=== PATIENT | male | born 1955 | race Caucasian/White ===

== ENCOUNTER 2021-11-29 12:58 | Inpatient (IN) | payer OTHER ==
[2021-11-29] MEDS ORDERED: LOPERAMIDE HCL 2 MG CAPSULE PO PRN (13:37)
[2021-11-29] MEDS ORDERED: MENTHOL/PHENOL 1 EACH UD MM PRN (13:37)
[2021-11-29] MEDS ORDERED: NICOTINE 10 MG CARTRIDGE (INHALER) IH PRN (13:37)
[2021-11-29] MEDS ORDERED: MAGNESIUM HYDROX 2400MG/30ML ORAL SUSPENSION 30 ML CUP PO PRN (13:37)
[2021-11-29] MEDS ORDERED: IBUPROFEN 400 MG TABLET (FP) PO PRN (13:37)
[2021-11-29] MEDS ORDERED: BISMUTH SUBSALICYLATE 524 MG/30 ML PO PRN (13:37)
[2021-11-29] MEDS ORDERED: MAG HYDROX/AL HYDROX/SIMETH 30 ML UNIT-DOSE CUP PO PRN (13:37)
[2021-11-29] MEDS ORDERED: ONDANSETRON *ODT* 4 MG TABLET SL PRN (13:37)
[2021-11-29] MEDS ORDERED: ACETAMINOPHEN 325 MG TABLET (FP) PO PRN ×2 (13:37)
[2021-11-29] MEDS ORDERED: MAGNESIUM CITRATE 300 ML BOTTLE PO PRN (13:37)
[2021-11-29 14:34] VITALS: BMI 28.0
[2021-11-29] MEDS: hydrOXYzine PAMOATE 25 MG CAPSULE (FP) PO SCH ×3 (18:29→23:00)
[2021-11-29] MEDS: diazePAM 5 MG TABLET PO SCH ×2 (18:29→23:01)
[2021-11-29] MEDS: NICOTINE 21 MG/24 HOURS TOPICAL PATCH TD SCH (18:30)
[2021-11-29] MEDS: PRENATAL VITAMINS W/ FOLIC ACID TABLET (FP) PO SCH (18:30)
[2021-11-29] MEDS: THIAMINE HCL 100 MG TABLET (FP) PO SCH (23:00)
[2021-11-29] MEDS: ATORVASTATIN CA 40 MG TABLET (FP) PO SCH (23:00)
[2021-11-29] MEDS: MELATONIN 5 MG TABLETS PO SCH (23:00)
[2021-11-30] MEDS: hydrOXYzine PAMOATE 25 MG CAPSULE (FP) PO SCH ×5 (05:39→22:40)
[2021-11-30] MEDS: diazePAM 5 MG TABLET PO SCH ×4 (05:39→22:40)
[2021-11-30] MEDS ORDERED: methaDONE HCL 10 MG TABLET PO SCH (09:30)
[2021-11-30] MEDS: EMTRICITAB/RILPIVIRI/TENOF ALA (ODEFSEY) TABLET PO SCH (10:30)
[2021-11-30] MEDS: PRENATAL VITAMINS W/ FOLIC ACID TABLET (FP) PO SCH (10:30)
[2021-11-30] MEDS: NICOTINE 21 MG/24 HOURS TOPICAL PATCH TD SCH (10:31)
[2021-11-30] MEDS ORDERED: methaDONE HCL 40 MG DISPERSABLE TABLET ONE (10:31)
[2021-11-30 10:44] LABS: HEMATOCRIT 38.8 % (35.4-49); HEMOGLOBIN 12.8 GM/dL (11.7-16.9); MCH 31.8 pg (25.7-33.7); MEAN CELL VOLUME 96.4 fl (80-96); MEAN PLT VOLUME 10.2 fl (7.5-11.1); PLATELET COUNT 110 10^3/uL (134-434); RBC 4.03 M/mm3 (4.00-5.60); RDW 15.1 % (11.9-15.9); WHITE BLOOD COUNT 4.2 K/mm3 (4.0-10.0)
[2021-11-30 10:49] LABS: CALCIUM 8.5 mg/dL (8.5-10.1)
[2021-11-30 10:50] LABS: ALBUMIN 3.2 g/dl (3.4-5.0); BLOOD UREA NITROGEN 30.4 mg/dL (7-18)
[2021-11-30 10:53] LABS: CREATININE 1.4 mg/dL (0.55-1.3)
[2021-11-30 10:55] LABS: BILIRUBIN,TOTAL 0.3 mg/dL (0.2-1); TOT PROT 7.2 g/dl (6.4-8.2)
[2021-11-30] MEDS: ATORVASTATIN CA 40 MG TABLET (FP) PO SCH (22:40)
[2021-11-30] MEDS: THIAMINE HCL 100 MG TABLET (FP) PO SCH (22:40)
[2021-11-30] MEDS: MELATONIN 5 MG TABLETS PO SCH (22:43)
[2021-12-01] MEDS ORDERED: methaDONE HCL 40 MG DISPERSABLE TABLET ONE (04:22)
[2021-12-01] MEDS: hydrOXYzine PAMOATE 25 MG CAPSULE (FP) PO SCH ×5 (05:40→22:51)
[2021-12-01] MEDS: diazePAM 5 MG TABLET PO SCH ×3 (05:40→22:51)
[2021-12-01] MEDS: EMTRICITAB/RILPIVIRI/TENOF ALA (ODEFSEY) TABLET PO SCH (07:28)
[2021-12-01 10:06] LABS: CALCIUM 8.8 mg/dL (8.5-10.1)
[2021-12-01 10:07] LABS: BLOOD UREA NITROGEN 24.2 mg/dL (7-18)
[2021-12-01 10:10] LABS: CREATININE 1.3 mg/dL (0.55-1.3)
[2021-12-01] MEDS: METHOCARBAMOL 500 MG TABLET PO PRN (10:39)
[2021-12-01] MEDS: PRENATAL VITAMINS W/ FOLIC ACID TABLET (FP) PO SCH (10:39)
[2021-12-01] MEDS: NICOTINE 21 MG/24 HOURS TOPICAL PATCH TD SCH (10:39)
[2021-12-01] MEDS: diazePAM 5 MG TABLET PO PRN (10:39)
[2021-12-01] MEDS: ATORVASTATIN CA 40 MG TABLET (FP) PO SCH (22:50)
[2021-12-01] MEDS: MELATONIN 5 MG TABLETS PO SCH (22:51)
[2021-12-01] MEDS: THIAMINE HCL 100 MG TABLET (FP) PO SCH (22:51)
[2021-12-02 00:07] LABS: SARS-CoV-2 NAA Not Detected (Not Detected)
[2021-12-02] MEDS ORDERED: methaDONE HCL 40 MG DISPERSABLE TABLET ONE (04:26)
[2021-12-02] MEDS: hydrOXYzine PAMOATE 25 MG CAPSULE (FP) PO SCH ×5 (05:34→22:44)
[2021-12-02] MEDS: diazePAM 5 MG TABLET PO SCH ×2 (05:34→18:26)
[2021-12-02] MEDS: EMTRICITAB/RILPIVIRI/TENOF ALA (ODEFSEY) TABLET PO SCH (07:49)
[2021-12-02] MEDS: diazePAM 5 MG TABLET PO PRN (10:36)
[2021-12-02] MEDS: METHOCARBAMOL 500 MG TABLET PO PRN (10:36)
[2021-12-02] MEDS: PRENATAL VITAMINS W/ FOLIC ACID TABLET (FP) PO SCH (10:36)
[2021-12-02] MEDS: NICOTINE 21 MG/24 HOURS TOPICAL PATCH TD SCH (10:36)
[2021-12-02] MEDS: THIAMINE HCL 100 MG TABLET (FP) PO SCH (22:44)
[2021-12-02] MEDS: ATORVASTATIN CA 40 MG TABLET (FP) PO SCH (22:44)
[2021-12-02] MEDS: MELATONIN 5 MG TABLETS PO SCH (22:44)
[2021-12-03] MEDS ORDERED: methaDONE HCL 40 MG DISPERSABLE TABLET ONE (04:11)
[2021-12-03] MEDS: hydrOXYzine PAMOATE 25 MG CAPSULE (FP) PO SCH ×3 (05:37→14:48)
[2021-12-03] MEDS ORDERED: diazePAM 5 MG TABLET PO ONE (06:00)
[2021-12-03] MEDS: EMTRICITAB/RILPIVIRI/TENOF ALA (ODEFSEY) TABLET PO SCH (07:11)
[2021-12-03] MEDS: NICOTINE 21 MG/24 HOURS TOPICAL PATCH TD SCH (10:16)
[2021-12-03] MEDS: PRENATAL VITAMINS W/ FOLIC ACID TABLET (FP) PO SCH (10:18)
[2021-12-03 13:11] VITALS: BP 93/50; PULSE 85; TEMP 97.3
== END 2021-12-03 14:35 | disposition other institution (70) | DRG 897 ==
LOC: YASAS 12:58 → Y6N 15:12
PROVIDERS: ADMIT Allergy & Immunology; ATTEND Allergy & Immunology
PROC: HZ2ZZZZ Detoxification Services for Substance Abuse Treatment (ICD-10-PCS; principal; 2021-11-29)
DX: F13.230 Sedative, hypnotic or anxiolytic dependence with withdrawal, uncomplicated (principal); F11.20 Opioid dependence, uncomplicated; F10.20 Alcohol dependence, uncomplicated; F17.210 Nicotine dependence, cigarettes, uncomplicated; F41.9 Anxiety disorder, unspecified; Z21 Asymptomatic human immunodeficiency virus [HIV] infection status; D69.6 Thrombocytopenia, unspecified; J44.9 Chronic obstructive pulmonary disease, unspecified; E78.5 Hyperlipidemia, unspecified; R79.89 Other specified abnormal findings of blood chemistry; Z99.89 Dependence on other enabling machines and devices
CPT/HCPCS: 36415; 80048; 80053; 85027; 86780; 93005; 93010; C9803-CS; U0003; U0005

== ENCOUNTER 2021-12-03 13:59 | Inpatient (IN) | payer OTHER ==
[2021-12-03] MEDS ORDERED: IBUPROFEN 400 MG TABLET (FP) PO PRN (16:03)
[2021-12-03] MEDS ORDERED: MAGNESIUM CITRATE 300 ML BOTTLE PO PRN (16:03)
[2021-12-03] MEDS ORDERED: LOPERAMIDE HCL 2 MG CAPSULE PO PRN (16:03)
[2021-12-03] MEDS ORDERED: NICOTINE 10 MG CARTRIDGE (INHALER) IH PRN (16:03)
[2021-12-03] MEDS ORDERED: MAGNESIUM HYDROX 2400MG/30ML ORAL SUSPENSION 30 ML CUP PO PRN (16:03)
[2021-12-03] MEDS ORDERED: guaiFENesin 200 MG/10 ML 10 ML UNIT-DOSE CUPS PO PRN (16:03)
[2021-12-03] MEDS ORDERED: MAG HYDROX/AL HYDROX/SIMETH 30 ML UNIT-DOSE CUP PO PRN (16:03)
[2021-12-03] MEDS ORDERED: P-EPHED 60MG/TRIPROLIDI 2.5MG TABLET PO PRN (16:03)
[2021-12-03] MEDS ORDERED: ACETAMINOPHEN 325 MG TABLET (FP) PO PRN (16:03)
[2021-12-03] MEDS: NICOTINE 7 MG/24 HOURS TOPICAL PATCH TD SCH (17:41)
[2021-12-03] MEDS: hydrOXYzine PAMOATE 25 MG CAPSULE (FP) PO SCH ×2 (17:41→21:32)
[2021-12-03] MEDS: MELATONIN 5 MG TABLETS PO SCH (21:32)
[2021-12-03] MEDS: THIAMINE HCL 100 MG TABLET (FP) PO SCH (21:32)
[2021-12-03] MEDS: ATORVASTATIN CA 40 MG TABLET (FP) PO SCH (21:33)
[2021-12-04] MEDS: hydrOXYzine PAMOATE 25 MG CAPSULE (FP) PO SCH ×5 (06:14→21:36)
[2021-12-04] MEDS ORDERED: methaDONE HCL 40 MG DISPERSABLE TABLET ONE (08:40)
[2021-12-04] MEDS: PRENATAL VITAMINS W/ FOLIC ACID TABLET (FP) PO SCH (09:49)
[2021-12-04] MEDS: NICOTINE 7 MG/24 HOURS TOPICAL PATCH TD SCH (09:51)
[2021-12-04] MEDS: EMTRICITAB/RILPIVIRI/TENOF ALA (ODEFSEY) TABLET PO SCH (09:51)
[2021-12-04] MEDS ORDERED: methaDONE HCL 40 MG DISPERSABLE TABLET PO SCH (10:00)
[2021-12-04] MEDS: ATORVASTATIN CA 40 MG TABLET (FP) PO SCH (21:35)
[2021-12-04] MEDS: THIAMINE HCL 100 MG TABLET (FP) PO SCH (21:35)
[2021-12-04] MEDS: MELATONIN 5 MG TABLETS PO SCH (21:35)
[2021-12-05] MEDS: hydrOXYzine PAMOATE 25 MG CAPSULE (FP) PO SCH (06:05)
[2021-12-05] MEDS ORDERED: methaDONE HCL 40 MG DISPERSABLE TABLET ONE (09:48)
[2021-12-05] MEDS ORDERED: hydrOXYzine PAMOATE 25 MG CAPSULE (FP) PO PRN (09:49)
[2021-12-05] MEDS: PRENATAL VITAMINS W/ FOLIC ACID TABLET (FP) PO SCH (09:57)
[2021-12-05] MEDS: NICOTINE 7 MG/24 HOURS TOPICAL PATCH TD SCH (09:57)
[2021-12-05] MEDS: EMTRICITAB/RILPIVIRI/TENOF ALA (ODEFSEY) TABLET PO SCH (09:57)
[2021-12-05] MEDS: ATORVASTATIN CA 40 MG TABLET (FP) PO SCH (21:27)
[2021-12-05] MEDS: THIAMINE HCL 100 MG TABLET (FP) PO SCH (21:27)
[2021-12-05] MEDS: MELATONIN 5 MG TABLETS PO SCH (21:27)
[2021-12-06] MEDS ORDERED: methaDONE HCL 40 MG DISPERSABLE TABLET ONE (06:11)
[2021-12-06] MEDS: PRENATAL VITAMINS W/ FOLIC ACID TABLET (FP) PO SCH (09:51)
[2021-12-06] MEDS: NICOTINE 7 MG/24 HOURS TOPICAL PATCH TD SCH (09:52)
[2021-12-06] MEDS: EMTRICITAB/RILPIVIRI/TENOF ALA (ODEFSEY) TABLET PO SCH (11:41)
[2021-12-06 16:09] LABS: SARS-CoV-2 NAA Not Detected (Not Detected)
[2021-12-06] MEDS: THIAMINE HCL 100 MG TABLET (FP) PO SCH (21:59)
[2021-12-06] MEDS: MELATONIN 5 MG TABLETS PO SCH (21:59)
[2021-12-06] MEDS: ATORVASTATIN CA 40 MG TABLET (FP) PO SCH (21:59)
[2021-12-07] MEDS ORDERED: methaDONE HCL 40 MG DISPERSABLE TABLET ONE (03:12)
[2021-12-07] MEDS: NICOTINE 7 MG/24 HOURS TOPICAL PATCH TD SCH (09:58)
[2021-12-07] MEDS: EMTRICITAB/RILPIVIRI/TENOF ALA (ODEFSEY) TABLET PO SCH (09:58)
[2021-12-07] MEDS: PRENATAL VITAMINS W/ FOLIC ACID TABLET (FP) PO SCH (09:58)
[2021-12-07] MEDS: MELATONIN 5 MG TABLETS PO SCH (21:07)
[2021-12-07] MEDS: THIAMINE HCL 100 MG TABLET (FP) PO SCH (21:07)
[2021-12-07] MEDS: ATORVASTATIN CA 40 MG TABLET (FP) PO SCH (21:08)
[2021-12-08] MEDS ORDERED: methaDONE HCL 40 MG DISPERSABLE TABLET ONE (03:15)
[2021-12-08] MEDS: EMTRICITAB/RILPIVIRI/TENOF ALA (ODEFSEY) TABLET PO SCH (09:55)
[2021-12-08] MEDS: NICOTINE 7 MG/24 HOURS TOPICAL PATCH TD SCH (09:55)
[2021-12-08] MEDS: PRENATAL VITAMINS W/ FOLIC ACID TABLET (FP) PO SCH (09:55)
[2021-12-08] MEDS: MELATONIN 5 MG TABLETS PO SCH (21:29)
[2021-12-08] MEDS: THIAMINE HCL 100 MG TABLET (FP) PO SCH (21:29)
[2021-12-08] MEDS: ATORVASTATIN CA 40 MG TABLET (FP) PO SCH (21:30)
[2021-12-09] MEDS ORDERED: methaDONE HCL 40 MG DISPERSABLE TABLET ONE (06:32)
[2021-12-09] MEDS: EMTRICITAB/RILPIVIRI/TENOF ALA (ODEFSEY) TABLET PO SCH (09:30)
[2021-12-09] MEDS: NICOTINE 7 MG/24 HOURS TOPICAL PATCH TD SCH (09:30)
[2021-12-09] MEDS: PRENATAL VITAMINS W/ FOLIC ACID TABLET (FP) PO SCH (09:30)
[2021-12-09] MEDS: THIAMINE HCL 100 MG TABLET (FP) PO SCH (21:26)
[2021-12-09] MEDS: MELATONIN 5 MG TABLETS PO SCH (21:26)
[2021-12-09] MEDS: ATORVASTATIN CA 40 MG TABLET (FP) PO SCH (21:26)
[2021-12-10] MEDS ORDERED: methaDONE HCL 40 MG DISPERSABLE TABLET ONE (03:12)
[2021-12-10] MEDS: PRENATAL VITAMINS W/ FOLIC ACID TABLET (FP) PO SCH (09:50)
[2021-12-10] MEDS: NICOTINE 7 MG/24 HOURS TOPICAL PATCH TD SCH (09:50)
[2021-12-10] MEDS: EMTRICITAB/RILPIVIRI/TENOF ALA (ODEFSEY) TABLET PO SCH (09:50)
[2021-12-10] MEDS: ATORVASTATIN CA 40 MG TABLET (FP) PO SCH (21:12)
[2021-12-10] MEDS: THIAMINE HCL 100 MG TABLET (FP) PO SCH (21:12)
[2021-12-10] MEDS: MELATONIN 5 MG TABLETS PO SCH (21:13)
[2021-12-11] MEDS ORDERED: methaDONE HCL 40 MG DISPERSABLE TABLET ONE (03:29)
[2021-12-11] MEDS: PRENATAL VITAMINS W/ FOLIC ACID TABLET (FP) PO SCH (09:54)
[2021-12-11] MEDS: EMTRICITAB/RILPIVIRI/TENOF ALA (ODEFSEY) TABLET PO SCH (09:54)
[2021-12-11] MEDS: NICOTINE 7 MG/24 HOURS TOPICAL PATCH TD SCH (09:54)
[2021-12-11] MEDS: THIAMINE HCL 100 MG TABLET (FP) PO SCH (21:24)
[2021-12-11] MEDS: MELATONIN 5 MG TABLETS PO SCH (21:24)
[2021-12-11] MEDS: ATORVASTATIN CA 40 MG TABLET (FP) PO SCH (21:24)
[2021-12-12] MEDS ORDERED: methaDONE HCL 40 MG DISPERSABLE TABLET ONE (03:24)
[2021-12-12] MEDS: NICOTINE 7 MG/24 HOURS TOPICAL PATCH TD SCH (09:47)
[2021-12-12] MEDS: EMTRICITAB/RILPIVIRI/TENOF ALA (ODEFSEY) TABLET PO SCH (09:47)
[2021-12-12] MEDS: PRENATAL VITAMINS W/ FOLIC ACID TABLET (FP) PO SCH (09:47)
[2021-12-12] MEDS: THIAMINE HCL 100 MG TABLET (FP) PO SCH (21:25)
[2021-12-12] MEDS: MELATONIN 5 MG TABLETS PO SCH (21:25)
[2021-12-12] MEDS: ATORVASTATIN CA 40 MG TABLET (FP) PO SCH (21:25)
[2021-12-13] MEDS ORDERED: methaDONE HCL 40 MG DISPERSABLE TABLET ONE (06:21)
[2021-12-13] MEDS: NICOTINE 7 MG/24 HOURS TOPICAL PATCH TD SCH (09:55)
[2021-12-13] MEDS: EMTRICITAB/RILPIVIRI/TENOF ALA (ODEFSEY) TABLET PO SCH (09:56)
[2021-12-13] MEDS: PRENATAL VITAMINS W/ FOLIC ACID TABLET (FP) PO SCH (09:57)
[2021-12-13] MEDS: THIAMINE HCL 100 MG TABLET (FP) PO SCH (21:17)
[2021-12-13] MEDS: MELATONIN 5 MG TABLETS PO SCH (21:17)
[2021-12-13] MEDS: ATORVASTATIN CA 40 MG TABLET (FP) PO SCH (21:17)
[2021-12-14] MEDS ORDERED: methaDONE HCL 40 MG DISPERSABLE TABLET ONE (03:13)
[2021-12-14] MEDS: EMTRICITAB/RILPIVIRI/TENOF ALA (ODEFSEY) TABLET PO SCH (10:10)
[2021-12-14] MEDS: NICOTINE 7 MG/24 HOURS TOPICAL PATCH TD SCH (10:10)
[2021-12-14] MEDS: PRENATAL VITAMINS W/ FOLIC ACID TABLET (FP) PO SCH (10:10)
[2021-12-14] MEDS: THIAMINE HCL 100 MG TABLET (FP) PO SCH (21:39)
[2021-12-14] MEDS: MELATONIN 5 MG TABLETS PO SCH (21:39)
[2021-12-14] MEDS: ATORVASTATIN CA 40 MG TABLET (FP) PO SCH (21:39)
[2021-12-15] MEDS ORDERED: methaDONE HCL 40 MG DISPERSABLE TABLET ONE (05:23)
[2021-12-15] MEDS: PRENATAL VITAMINS W/ FOLIC ACID TABLET (FP) PO SCH (09:17)
[2021-12-15] MEDS: EMTRICITAB/RILPIVIRI/TENOF ALA (ODEFSEY) TABLET PO SCH (09:17)
[2021-12-15] MEDS: NICOTINE 7 MG/24 HOURS TOPICAL PATCH TD SCH (09:17)
[2021-12-15] MEDS: ATORVASTATIN CA 40 MG TABLET (FP) PO SCH (21:23)
[2021-12-15] MEDS: MELATONIN 5 MG TABLETS PO SCH (21:23)
[2021-12-15] MEDS: THIAMINE HCL 100 MG TABLET (FP) PO SCH (21:23)
[2021-12-16] MEDS ORDERED: methaDONE HCL 40 MG DISPERSABLE TABLET ONE (04:29)
[2021-12-16 06:36] VITALS: BP 146/73; PULSE 50; TEMP 98.9
== END 2021-12-16 09:20 | disposition home or self-care (01) | DRG 895 ==
LOC: YASAS 13:59 → Y3E 14:00
PROVIDERS: ADMIT Allergy & Immunology; ATTEND Allergy & Immunology
PROC: HZ42ZZZ Group Counseling for Substance Abuse Treatment, Cognitive-Behavioral (ICD-10-PCS; principal; 2021-12-03)
DX: F10.20 Alcohol dependence, uncomplicated (principal); F11.20 Opioid dependence, uncomplicated; F17.210 Nicotine dependence, cigarettes, uncomplicated; Z21 Asymptomatic human immunodeficiency virus [HIV] infection status; J44.9 Chronic obstructive pulmonary disease, unspecified; E78.5 Hyperlipidemia, unspecified; R79.89 Other specified abnormal findings of blood chemistry; Z98.890 Other specified postprocedural states
CPT/HCPCS: 36415; 86803; 87522; C9803-CS; U0003; U0005

== ENCOUNTER 2022-02-28 11:47 | Inpatient (IN) | payer OTHER ==
[2022-02-28 12:48] VITALS: BMI 28.8
[2022-02-28] MEDS ORDERED: MAG HYDROX/AL HYDROX/SIMETH 30 ML UNIT-DOSE CUP PO PRN (13:09)
[2022-02-28] MEDS ORDERED: ACETAMINOPHEN 325 MG TABLET (FP) PO PRN ×2 (13:09)
[2022-02-28] MEDS ORDERED: BENZOCAINE/MENTHOL (CHLORASEPTIC ) LOZENGE MM PRN (13:09)
[2022-02-28] MEDS ORDERED: DICYCLOMINE HCL 10 MG CAPSULE PO PRN (13:09)
[2022-02-28] MEDS ORDERED: ONDANSETRON *ODT* 4 MG TABLET SL PRN (13:09)
[2022-02-28] MEDS ORDERED: diazePAM 5 MG TABLET PO PRN (13:09)
[2022-02-28] MEDS ORDERED: NICOTINE 10 MG CARTRIDGE (INHALER) IH PRN (13:09)
[2022-02-28] MEDS ORDERED: LOPERAMIDE HCL 2 MG CAPSULE PO PRN (13:09)
[2022-02-28] MEDS ORDERED: MAGNESIUM CITRATE 300 ML BOTTLE PO PRN (13:09)
[2022-02-28] MEDS ORDERED: IBUPROFEN 400 MG TABLET (FP) PO PRN (13:09)
[2022-02-28] MEDS ORDERED: IBUPROFEN 600 MG TABLET (FP) PO PRN (13:09)
[2022-02-28] MEDS ORDERED: BISMUTH SUBSALICYLATE 524 MG/30 ML PO PRN (13:09)
[2022-02-28] MEDS ORDERED: MAGNESIUM HYDROX 2400MG/30ML ORAL SUSPENSION 30 ML CUP PO PRN (13:09)
[2022-02-28] MEDS: NICOTINE 14 MG/24 HOURS TOPICAL PATCH TD SCH (15:30)
[2022-02-28] MEDS: hydrOXYzine PAMOATE 25 MG CAPSULE (FP) PO SCH ×3 (15:32→22:52)
[2022-02-28] MEDS: METHOCARBAMOL 500 MG TABLET PO PRN (15:32)
[2022-02-28] MEDS: PRENATAL VITAMINS W/ FOLIC ACID TABLET (FP) PO SCH (15:33)
[2022-02-28 17:36] LABS: HEMATOCRIT 40.4 % (35.4-49); HEMOGLOBIN 13.8 GM/dL (11.7-16.9); MCH 32.5 pg (25.7-33.7); MCHC 34.1 g/dl (32.0-35.9); MEAN CELL VOLUME 95.3 fl (80-96); MEAN PLT VOLUME 10.4 fl (7.5-11.1); PLATELET COUNT 136 10^3/uL (134-434); RBC 4.24 M/mm3 (4.00-5.60); RDW 14.7 % (11.9-15.9); WHITE BLOOD COUNT 5.7 K/mm3 (4.0-10.0)
[2022-02-28] MEDS: diazePAM 5 MG TABLET PO SCH ×2 (17:41→22:34)
[2022-02-28 17:44] LABS: ALBUMIN 3.7 g/dl (3.4-5.0); BLOOD UREA NITROGEN 35.6 mg/dL (7-18); CALCIUM 9.2 mg/dL (8.5-10.1)
[2022-02-28 17:47] LABS: CREATININE 1.7 mg/dL (0.55-1.3)
[2022-02-28 17:49] LABS: BILIRUBIN,TOTAL 0.8 mg/dL (0.2-1); TOT PROT 8.3 g/dl (6.4-8.2)
[2022-02-28] MEDS: THIAMINE HCL 100 MG TABLET (FP) PO SCH (22:34)
[2022-02-28] MEDS: ATORVASTATIN CA 40 MG TABLET (FP) PO SCH (22:34)
[2022-02-28] MEDS: MELATONIN 5 MG TABLETS PO SCH (22:35)
[2022-03-01] MEDS ORDERED: methaDONE HCL 40 MG DISPERSABLE TABLET ONE (04:18)
[2022-03-01] MEDS: hydrOXYzine PAMOATE 25 MG CAPSULE (FP) PO SCH ×5 (05:15→22:26)
[2022-03-01] MEDS: diazePAM 5 MG TABLET PO SCH ×4 (05:16→22:23)
[2022-03-01] MEDS: EMTRICITAB/RILPIVIRI/TENOF ALA (ODEFSEY) TABLET PO SCH (07:06)
[2022-03-01] MEDS ORDERED: methaDONE HCL 40 MG DISPERSABLE TABLET PO SCH (10:00)
[2022-03-01] MEDS: PRENATAL VITAMINS W/ FOLIC ACID TABLET (FP) PO SCH (10:11)
[2022-03-01] MEDS: METHOCARBAMOL 500 MG TABLET PO PRN (10:11)
[2022-03-01] MEDS: NICOTINE 14 MG/24 HOURS TOPICAL PATCH TD SCH (10:12)
[2022-03-01] MEDS: THIAMINE HCL 100 MG TABLET (FP) PO SCH (22:23)
[2022-03-01] MEDS: ATORVASTATIN CA 40 MG TABLET (FP) PO SCH (22:23)
[2022-03-01] MEDS: MELATONIN 5 MG TABLETS PO SCH (22:24)
[2022-03-02] MEDS ORDERED: methaDONE HCL 40 MG DISPERSABLE TABLET ONE (04:42)
[2022-03-02] MEDS: hydrOXYzine PAMOATE 25 MG CAPSULE (FP) PO SCH ×5 (05:20→22:21)
[2022-03-02] MEDS: diazePAM 5 MG TABLET PO SCH ×3 (05:20→22:20)
[2022-03-02] MEDS: EMTRICITAB/RILPIVIRI/TENOF ALA (ODEFSEY) TABLET PO SCH (07:50)
[2022-03-02] MEDS: PRENATAL VITAMINS W/ FOLIC ACID TABLET (FP) PO SCH (10:28)
[2022-03-02] MEDS: NICOTINE 14 MG/24 HOURS TOPICAL PATCH TD SCH (10:29)
[2022-03-02 12:30] LABS: CALCIUM 8.3 mg/dL (8.5-10.1)
[2022-03-02 12:31] LABS: BLOOD UREA NITROGEN 31.1 mg/dL (7-18)
[2022-03-02 12:34] LABS: CREATININE 1.2 mg/dL (0.55-1.3)
[2022-03-02] MEDS: ATORVASTATIN CA 40 MG TABLET (FP) PO SCH (22:20)
[2022-03-02] MEDS: THIAMINE HCL 100 MG TABLET (FP) PO SCH (22:20)
[2022-03-02] MEDS: MELATONIN 5 MG TABLETS PO SCH (22:21)
[2022-03-03] MEDS ORDERED: methaDONE HCL 40 MG DISPERSABLE TABLET ONE (04:11)
[2022-03-03] MEDS: diazePAM 5 MG TABLET PO SCH ×2 (05:36→17:28)
[2022-03-03] MEDS: hydrOXYzine PAMOATE 25 MG CAPSULE (FP) PO SCH ×5 (05:41→22:25)
[2022-03-03] MEDS: EMTRICITAB/RILPIVIRI/TENOF ALA (ODEFSEY) TABLET PO SCH (07:28)
[2022-03-03] MEDS: PRENATAL VITAMINS W/ FOLIC ACID TABLET (FP) PO SCH (10:23)
[2022-03-03] MEDS: NICOTINE 14 MG/24 HOURS TOPICAL PATCH TD SCH (10:23)
[2022-03-03] MEDS: MELATONIN 5 MG TABLETS PO SCH (22:25)
[2022-03-03] MEDS: ATORVASTATIN CA 40 MG TABLET (FP) PO SCH (22:25)
[2022-03-03] MEDS: THIAMINE HCL 100 MG TABLET (FP) PO SCH (22:25)
[2022-03-04] MEDS ORDERED: methaDONE HCL 40 MG DISPERSABLE TABLET ONE (04:07)
[2022-03-04] MEDS: hydrOXYzine PAMOATE 25 MG CAPSULE (FP) PO SCH ×2 (05:13→10:11)
[2022-03-04] MEDS ORDERED: diazePAM 5 MG TABLET PO ONE (06:00)
[2022-03-04] MEDS: EMTRICITAB/RILPIVIRI/TENOF ALA (ODEFSEY) TABLET PO SCH (08:06)
[2022-03-04] MEDS: PRENATAL VITAMINS W/ FOLIC ACID TABLET (FP) PO SCH (10:11)
[2022-03-04] MEDS: NICOTINE 14 MG/24 HOURS TOPICAL PATCH TD SCH (10:12)
[2022-03-04 12:44] VITALS: BP 98/66; PULSE 68; TEMP 97.7
== END 2022-03-04 13:05 | disposition other institution (70) | DRG 897 ==
LOC: YASAS 11:47 → Y6N 13:14
PROVIDERS: ADMIT Allergy & Immunology; ATTEND Surgery
PROC: HZ2ZZZZ Detoxification Services for Substance Abuse Treatment (ICD-10-PCS; principal; 2022-02-28)
DX: F13.232 Sedative, hypnotic or anxiolytic dependence with withdrawal with perceptual disturbance (principal); F11.20 Opioid dependence, uncomplicated; F17.210 Nicotine dependence, cigarettes, uncomplicated; E78.5 Hyperlipidemia, unspecified; Z21 Asymptomatic human immunodeficiency virus [HIV] infection status; J44.9 Chronic obstructive pulmonary disease, unspecified; R79.89 Other specified abnormal findings of blood chemistry
CPT/HCPCS: 36415; 80048; 80053; 85027; 86780; C9803-CS; U0003; U0005

== ENCOUNTER 2022-03-04 13:37 | Inpatient (IN) | payer OTHER ==
[2022-03-04] MEDS ORDERED: MAGNESIUM HYDROX 2400MG/30ML ORAL SUSPENSION 30 ML CUP PO PRN (15:28)
[2022-03-04] MEDS ORDERED: P-EPHED 60MG/TRIPROLIDI 2.5MG TABLET PO PRN (15:28)
[2022-03-04] MEDS ORDERED: LOPERAMIDE HCL 2 MG CAPSULE PO PRN (15:28)
[2022-03-04] MEDS ORDERED: MAGNESIUM CITRATE 300 ML BOTTLE PO PRN (15:28)
[2022-03-04] MEDS ORDERED: MAG HYDROX/AL HYDROX/SIMETH 30 ML UNIT-DOSE CUP PO PRN (15:28)
[2022-03-04] MEDS ORDERED: NICOTINE 10 MG CARTRIDGE (INHALER) IH PRN (15:28)
[2022-03-04] MEDS ORDERED: guaiFENesin 200 MG/10 ML 10 ML UNIT-DOSE CUPS PO PRN (15:28)
[2022-03-04] MEDS: hydrOXYzine PAMOATE 25 MG CAPSULE (FP) PO SCH ×2 (18:50→22:34)
[2022-03-04] MEDS: THIAMINE HCL 100 MG TABLET (FP) PO SCH (22:34)
[2022-03-04] MEDS: ATORVASTATIN CA 40 MG TABLET (FP) PO SCH (22:34)
[2022-03-04] MEDS: MELATONIN 5 MG TABLETS PO SCH (22:34)
[2022-03-05] MEDS: hydrOXYzine PAMOATE 25 MG CAPSULE (FP) PO SCH ×5 (06:35→21:26)
[2022-03-05] MEDS ORDERED: methaDONE HCL 40 MG DISPERSABLE TABLET ONE (08:49)
[2022-03-05] MEDS ORDERED: methaDONE HCL 40 MG DISPERSABLE TABLET PO SCH (10:00)
[2022-03-05] MEDS: PRENATAL VITAMINS W/ FOLIC ACID TABLET (FP) PO SCH (10:14)
[2022-03-05] MEDS: NICOTINE 7 MG/24 HOURS TOPICAL PATCH TD SCH (10:18)
[2022-03-05] MEDS: EMTRICITAB/RILPIVIRI/TENOF ALA (ODEFSEY) TABLET PO SCH (10:18)
[2022-03-05 10:38] LABS: PH,URINE 7.5 (5.0-8.0); URINE APPEARANCE CLEAR; URINE BILIRUBIN NEGATIVE (NEGATIVE); URINE COLOR YELLOW; URINE GLUCOSE (UA) NEGATIVE (NEGATIVE); URINE KETONE NEGATIVE (NEGATIVE); URINE LEUK ESTERASE NEGATIVE (NEGATIVE); URINE NITRITE NEGATIVE (NEGATIVE); URINE PROTEIN NEGATIVE (NEGATIVE)
[2022-03-05] MEDS: ATORVASTATIN CA 40 MG TABLET (FP) PO SCH (21:26)
[2022-03-05] MEDS: MELATONIN 5 MG TABLETS PO SCH (21:26)
[2022-03-05] MEDS: THIAMINE HCL 100 MG TABLET (FP) PO SCH (21:26)
[2022-03-06] MEDS: hydrOXYzine PAMOATE 25 MG CAPSULE (FP) PO SCH ×2 (06:26→09:55)
[2022-03-06] MEDS ORDERED: methaDONE HCL 40 MG DISPERSABLE TABLET ONE (08:57)
[2022-03-06] MEDS: PRENATAL VITAMINS W/ FOLIC ACID TABLET (FP) PO SCH (09:54)
[2022-03-06] MEDS: NICOTINE 7 MG/24 HOURS TOPICAL PATCH TD SCH (09:55)
[2022-03-06] MEDS: EMTRICITAB/RILPIVIRI/TENOF ALA (ODEFSEY) TABLET PO SCH (09:55)
[2022-03-06] MEDS: ATORVASTATIN CA 40 MG TABLET (FP) PO SCH (21:22)
[2022-03-06] MEDS: THIAMINE HCL 100 MG TABLET (FP) PO SCH (21:22)
[2022-03-06] MEDS: IBUPROFEN 400 MG TABLET (FP) PO PRN (21:23)
[2022-03-06] MEDS: MELATONIN 5 MG TABLETS PO SCH (21:23)
[2022-03-07] MEDS ORDERED: methaDONE HCL 40 MG DISPERSABLE TABLET ONE (04:03)
[2022-03-07] MEDS: NICOTINE 7 MG/24 HOURS TOPICAL PATCH TD SCH (10:29)
[2022-03-07] MEDS: PRENATAL VITAMINS W/ FOLIC ACID TABLET (FP) PO SCH (10:29)
[2022-03-07] MEDS: EMTRICITAB/RILPIVIRI/TENOF ALA (ODEFSEY) TABLET PO SCH (10:43)
[2022-03-07] MEDS: hydrOXYzine PAMOATE 25 MG CAPSULE (FP) PO PRN (21:10)
[2022-03-07] MEDS: MELATONIN 5 MG TABLETS PO SCH (21:10)
[2022-03-07] MEDS: ATORVASTATIN CA 40 MG TABLET (FP) PO SCH (21:10)
[2022-03-07] MEDS: THIAMINE HCL 100 MG TABLET (FP) PO SCH (21:10)
[2022-03-08] MEDS ORDERED: methaDONE HCL 40 MG DISPERSABLE TABLET ONE (03:50)
[2022-03-08] MEDS: IBUPROFEN 400 MG TABLET (FP) PO PRN ×2 (06:08→21:31)
[2022-03-08] MEDS: EMTRICITAB/RILPIVIRI/TENOF ALA (ODEFSEY) TABLET PO SCH (09:40)
[2022-03-08] MEDS: PRENATAL VITAMINS W/ FOLIC ACID TABLET (FP) PO SCH (09:40)
[2022-03-08] MEDS: NICOTINE 7 MG/24 HOURS TOPICAL PATCH TD SCH (09:40)
[2022-03-08] MEDS: THIAMINE HCL 100 MG TABLET (FP) PO SCH (21:30)
[2022-03-08] MEDS: ATORVASTATIN CA 40 MG TABLET (FP) PO SCH (21:30)
[2022-03-08] MEDS: hydrOXYzine PAMOATE 25 MG CAPSULE (FP) PO PRN (21:30)
[2022-03-08] MEDS: MELATONIN 5 MG TABLETS PO SCH (21:30)
[2022-03-09] MEDS ORDERED: methaDONE HCL 40 MG DISPERSABLE TABLET ONE (03:04)
[2022-03-09] MEDS: PRENATAL VITAMINS W/ FOLIC ACID TABLET (FP) PO SCH (09:57)
[2022-03-09] MEDS: NICOTINE 7 MG/24 HOURS TOPICAL PATCH TD SCH (09:58)
[2022-03-09] MEDS: EMTRICITAB/RILPIVIRI/TENOF ALA (ODEFSEY) TABLET PO SCH (09:58)
[2022-03-09] MEDS: ATORVASTATIN CA 40 MG TABLET (FP) PO SCH (21:23)
[2022-03-09] MEDS: MELATONIN 5 MG TABLETS PO SCH (21:24)
[2022-03-09] MEDS: hydrOXYzine PAMOATE 25 MG CAPSULE (FP) PO PRN (21:24)
[2022-03-09] MEDS: THIAMINE HCL 100 MG TABLET (FP) PO SCH (21:24)
[2022-03-10] MEDS ORDERED: methaDONE HCL 40 MG DISPERSABLE TABLET ONE (03:52)
[2022-03-10] MEDS: ACETAMINOPHEN 325 MG TABLET (FP) PO PRN (06:05)
[2022-03-10] MEDS: PRENATAL VITAMINS W/ FOLIC ACID TABLET (FP) PO SCH (09:51)
[2022-03-10] MEDS: NICOTINE 7 MG/24 HOURS TOPICAL PATCH TD SCH (09:52)
[2022-03-10] MEDS: EMTRICITAB/RILPIVIRI/TENOF ALA (ODEFSEY) TABLET PO SCH (09:52)
[2022-03-10] MEDS: ATORVASTATIN CA 40 MG TABLET (FP) PO SCH (21:18)
[2022-03-10] MEDS: hydrOXYzine PAMOATE 25 MG CAPSULE (FP) PO PRN (21:18)
[2022-03-10] MEDS: MELATONIN 5 MG TABLETS PO SCH (21:18)
[2022-03-10] MEDS: THIAMINE HCL 100 MG TABLET (FP) PO SCH (21:18)
[2022-03-11] MEDS ORDERED: methaDONE HCL 40 MG DISPERSABLE TABLET ONE (03:44)
[2022-03-11] MEDS: IBUPROFEN 400 MG TABLET (FP) PO PRN (06:10)
[2022-03-11] MEDS: PRENATAL VITAMINS W/ FOLIC ACID TABLET (FP) PO SCH (09:36)
[2022-03-11] MEDS: NICOTINE 7 MG/24 HOURS TOPICAL PATCH TD SCH (09:37)
[2022-03-11] MEDS: ACETAMINOPHEN 325 MG TABLET (FP) PO PRN ×2 (09:37→21:28)
[2022-03-11] MEDS: EMTRICITAB/RILPIVIRI/TENOF ALA (ODEFSEY) TABLET PO SCH (09:39)
[2022-03-11] MEDS: THIAMINE HCL 100 MG TABLET (FP) PO SCH (21:27)
[2022-03-11] MEDS: MELATONIN 5 MG TABLETS PO SCH (21:27)
[2022-03-11] MEDS: ATORVASTATIN CA 40 MG TABLET (FP) PO SCH (21:27)
[2022-03-12] MEDS ORDERED: methaDONE HCL 40 MG DISPERSABLE TABLET ONE (03:07)
[2022-03-12] MEDS: EMTRICITAB/RILPIVIRI/TENOF ALA (ODEFSEY) TABLET PO SCH (09:53)
[2022-03-12] MEDS: NICOTINE 7 MG/24 HOURS TOPICAL PATCH TD SCH (09:53)
[2022-03-12] MEDS: PRENATAL VITAMINS W/ FOLIC ACID TABLET (FP) PO SCH (09:53)
[2022-03-12] MEDS: IBUPROFEN 400 MG TABLET (FP) PO PRN (09:54)
[2022-03-12] MEDS: THIAMINE HCL 100 MG TABLET (FP) PO SCH (21:19)
[2022-03-12] MEDS: MELATONIN 5 MG TABLETS PO SCH (21:19)
[2022-03-12] MEDS: hydrOXYzine PAMOATE 25 MG CAPSULE (FP) PO PRN (21:19)
[2022-03-12] MEDS: ATORVASTATIN CA 40 MG TABLET (FP) PO SCH (21:19)
[2022-03-13] MEDS ORDERED: methaDONE HCL 40 MG DISPERSABLE TABLET ONE (03:09)
[2022-03-13] MEDS: NICOTINE 7 MG/24 HOURS TOPICAL PATCH TD SCH (09:55)
[2022-03-13] MEDS: IBUPROFEN 400 MG TABLET (FP) PO PRN (09:55)
[2022-03-13] MEDS: EMTRICITAB/RILPIVIRI/TENOF ALA (ODEFSEY) TABLET PO SCH (09:55)
[2022-03-13] MEDS: PRENATAL VITAMINS W/ FOLIC ACID TABLET (FP) PO SCH (09:55)
[2022-03-13] MEDS: THIAMINE HCL 100 MG TABLET (FP) PO SCH (21:27)
[2022-03-13] MEDS: ATORVASTATIN CA 40 MG TABLET (FP) PO SCH (21:27)
[2022-03-13] MEDS: hydrOXYzine PAMOATE 25 MG CAPSULE (FP) PO PRN (21:27)
[2022-03-13] MEDS: MELATONIN 5 MG TABLETS PO SCH (21:27)
[2022-03-14] MEDS ORDERED: methaDONE HCL 40 MG DISPERSABLE TABLET ONE (06:12)
[2022-03-14] MEDS: PRENATAL VITAMINS W/ FOLIC ACID TABLET (FP) PO SCH (09:47)
[2022-03-14] MEDS: NICOTINE 7 MG/24 HOURS TOPICAL PATCH TD SCH (09:48)
[2022-03-14] MEDS: EMTRICITAB/RILPIVIRI/TENOF ALA (ODEFSEY) TABLET PO SCH (09:48)
[2022-03-14] MEDS: IBUPROFEN 400 MG TABLET (FP) PO PRN (09:48)
[2022-03-14] MEDS: ATORVASTATIN CA 40 MG TABLET (FP) PO SCH (21:19)
[2022-03-14] MEDS: hydrOXYzine PAMOATE 25 MG CAPSULE (FP) PO PRN (21:19)
[2022-03-14] MEDS: THIAMINE HCL 100 MG TABLET (FP) PO SCH (21:19)
[2022-03-14] MEDS: MELATONIN 5 MG TABLETS PO SCH (21:19)
[2022-03-15] MEDS ORDERED: methaDONE HCL 40 MG DISPERSABLE TABLET ONE (04:13)
[2022-03-15] MEDS: EMTRICITAB/RILPIVIRI/TENOF ALA (ODEFSEY) TABLET PO SCH (09:55)
[2022-03-15] MEDS: PRENATAL VITAMINS W/ FOLIC ACID TABLET (FP) PO SCH (09:55)
[2022-03-15] MEDS: NICOTINE 7 MG/24 HOURS TOPICAL PATCH TD SCH (09:56)
[2022-03-15] MEDS: MELATONIN 5 MG TABLETS PO SCH (21:20)
[2022-03-15] MEDS: THIAMINE HCL 100 MG TABLET (FP) PO SCH (21:20)
[2022-03-15] MEDS: ATORVASTATIN CA 40 MG TABLET (FP) PO SCH (21:20)
[2022-03-16] MEDS ORDERED: methaDONE HCL 40 MG DISPERSABLE TABLET ONE (03:08)
[2022-03-16] MEDS: EMTRICITAB/RILPIVIRI/TENOF ALA (ODEFSEY) TABLET PO SCH (09:58)
[2022-03-16] MEDS: NICOTINE 7 MG/24 HOURS TOPICAL PATCH TD SCH (09:58)
[2022-03-16] MEDS: PRENATAL VITAMINS W/ FOLIC ACID TABLET (FP) PO SCH (09:58)
[2022-03-16] MEDS: THIAMINE HCL 100 MG TABLET (FP) PO SCH (21:31)
[2022-03-16] MEDS: ATORVASTATIN CA 40 MG TABLET (FP) PO SCH (21:31)
[2022-03-16] MEDS: MELATONIN 5 MG TABLETS PO SCH (21:31)
[2022-03-17] MEDS ORDERED: methaDONE HCL 40 MG DISPERSABLE TABLET ONE (03:32)
[2022-03-17 06:18] VITALS: BP 135/70; PULSE 75; TEMP 97.5
[2022-03-17] MEDS: NICOTINE 7 MG/24 HOURS TOPICAL PATCH TD SCH (09:18)
[2022-03-17] MEDS: PRENATAL VITAMINS W/ FOLIC ACID TABLET (FP) PO SCH (09:18)
[2022-03-17] MEDS: EMTRICITAB/RILPIVIRI/TENOF ALA (ODEFSEY) TABLET PO SCH (09:19)
== END 2022-03-17 09:34 | disposition home or self-care (01) | DRG 895 ==
LOC: YASAS 13:37 → Y3W 13:40 → Y3N 03-05 18:50 → Y5N 03-05 18:51
PROVIDERS: ADMIT Allergy & Immunology; ATTEND Psychiatry & Neurology Pain Medicine
PROC: HZ42ZZZ Group Counseling for Substance Abuse Treatment, Cognitive-Behavioral (ICD-10-PCS; principal; 2022-03-04)
DX: F10.20 Alcohol dependence, uncomplicated (principal); F13.20 Sedative, hypnotic or anxiolytic dependence, uncomplicated; F11.20 Opioid dependence, uncomplicated; F17.210 Nicotine dependence, cigarettes, uncomplicated; Z21 Asymptomatic human immunodeficiency virus [HIV] infection status; E78.5 Hyperlipidemia, unspecified; J44.9 Chronic obstructive pulmonary disease, unspecified; R00.0 Tachycardia, unspecified; Z86.2 Personal history of diseases of the blood and blood-forming organs and certain disorders involving the immune mechanism
CPT/HCPCS: 81003

== ENCOUNTER 2022-09-09 09:58 | Inpatient (IN) | payer OTHER ==
[2022-09-09 12:13] VITALS: BMI 29.5
[2022-09-09] MEDS ORDERED: DICYCLOMINE HCL 10 MG CAPSULE PO PRN (14:41)
[2022-09-09] MEDS ORDERED: IBUPROFEN 400 MG TABLET (FP) PO PRN (14:41)
[2022-09-09] MEDS ORDERED: NICOTINE 10 MG CARTRIDGE (INHALER) IH PRN (14:41)
[2022-09-09] MEDS ORDERED: diazePAM 5 MG TABLET PO ONE (14:41)
[2022-09-09] MEDS ORDERED: ACETAMINOPHEN 325 MG TABLET (FP) PO PRN ×2 (14:41)
[2022-09-09] MEDS ORDERED: BISMUTH SUBSALICYLATE 524 MG/30 ML PO PRN (14:41)
[2022-09-09] MEDS ORDERED: ONDANSETRON *ODT* 4 MG TABLET SL PRN (14:41)
[2022-09-09] MEDS ORDERED: POLYETHYLENE GLYCOL (HEALTHYLAX) 3350 17 GM PACKET PO PRN (14:41)
[2022-09-09] MEDS ORDERED: MAG HYDROX/AL HYDROX/SIMETH 30 ML UNIT-DOSE CUP PO PRN (14:41)
[2022-09-09] MEDS ORDERED: BENZOCAINE/MENTHOL (CHLORASEPTIC ) LOZENGE MM PRN (14:41)
[2022-09-09] MEDS ORDERED: diazePAM 5 MG TABLET PO PRN (14:41)
[2022-09-09] MEDS ORDERED: IBUPROFEN 600 MG TABLET (FP) PO PRN (14:41)
[2022-09-09] MEDS ORDERED: MAGNESIUM HYDROX 2400MG/30ML ORAL SUSPENSION 30 ML CUP PO PRN (14:41)
[2022-09-09] MEDS ORDERED: METHOCARBAMOL 500 MG TABLET PO PRN (14:41)
[2022-09-09] MEDS ORDERED: hydrOXYzine PAMOATE 25 MG CAPSULE (FP) PO PRN (14:41)
[2022-09-09] MEDS ORDERED: NALOXONE HCL (KLOXXADO) 8 MG SPRAY NS PRN (14:41)
[2022-09-09] MEDS ORDERED: LOPERAMIDE HCL 2 MG CAPSULE PO PRN (14:41)
[2022-09-09] MEDS ORDERED: ALBUTEROL SO4 HFA INHALER IH PRN (14:46)
[2022-09-09] MEDS ORDERED: diazePAM 5 MG TABLET ONE (15:05)
[2022-09-09] MEDS: diazePAM 5 MG TABLET PO SCH ×2 (18:01→22:21)
[2022-09-09] MEDS: BUDESONIDE/FORMETEROL FUMARATE 160/4.5 mcg INHALER IH SCH (22:20)
[2022-09-09] MEDS: MELATONIN 5 MG TABLETS PO SCH (22:21)
[2022-09-09] MEDS: ATORVASTATIN CA 40 MG TABLET (FP) PO SCH (22:21)
[2022-09-09] MEDS: THIAMINE HCL 100 MG TABLET (FP) PO SCH (22:21)
[2022-09-10] MEDS: diazePAM 5 MG TABLET PO SCH ×4 (05:19→22:23)
[2022-09-10] MEDS ORDERED: methaDONE HCL 10 MG TABLET PO ONE ×2 (06:00)
[2022-09-10] MEDS: NICOTINE 21 MG/24 HOURS TOPICAL PATCH TD SCH (10:52)
[2022-09-10] MEDS: BUDESONIDE/FORMETEROL FUMARATE 160/4.5 mcg INHALER IH SCH ×2 (10:52→22:25)
[2022-09-10] MEDS: PRENATAL VITAMINS W/ FOLIC ACID TABLET (FP) PO SCH (10:52)
[2022-09-10] MEDS: EMTRICITAB/RILPIVIRI/TENOF ALA (ODEFSEY) TABLET PO SCH (11:00)
[2022-09-10 11:02] LABS: HEMATOCRIT 37.1 % (35.4-49); HEMOGLOBIN 12.2 GM/dL (11.7-16.9); MCHC 32.9 g/dl (32.0-35.9); MEAN CELL VOLUME 97.4 fl (80-96); MEAN PLT VOLUME 10.7 fl (7.5-11.1); PLATELET COUNT 117 10^3/uL (134-434); RBC 3.81 M/mm3 (4.00-5.60); RDW 14.3 % (11.9-15.9); WHITE BLOOD COUNT 4.6 K/mm3 (4.0-10.0)
[2022-09-10 11:10] LABS: CALCIUM 8.6 mg/dL (8.5-10.1)
[2022-09-10 11:11] LABS: BLOOD UREA NITROGEN 28.7 mg/dL (7-18)
[2022-09-10 11:13] LABS: CREATININE 1.4 mg/dL (0.55-1.3); TOT PROT 6.8 g/dl (6.4-8.2)
[2022-09-10 11:15] LABS: BILIRUBIN,TOTAL 0.2 mg/dL (0.2-1)
[2022-09-10] MEDS ORDERED: ALBUTEROL SO4 HFA INHALER IH ONE (13:28)
[2022-09-10] MEDS ORDERED: METHOCARBAMOL 750 MG TAB PO ONE (13:45)
[2022-09-10] MEDS: ATORVASTATIN CA 40 MG TABLET (FP) PO SCH (22:24)
[2022-09-10] MEDS: THIAMINE HCL 100 MG TABLET (FP) PO SCH (22:24)
[2022-09-10] MEDS: MELATONIN 5 MG TABLETS PO SCH (22:24)
[2022-09-11] MEDS: diazePAM 5 MG TABLET PO SCH ×3 (05:26→22:06)
[2022-09-11] MEDS: EMTRICITAB/RILPIVIRI/TENOF ALA (ODEFSEY) TABLET PO SCH (09:43)
[2022-09-11] MEDS: NICOTINE 21 MG/24 HOURS TOPICAL PATCH TD SCH (09:43)
[2022-09-11] MEDS: PRENATAL VITAMINS W/ FOLIC ACID TABLET (FP) PO SCH (09:43)
[2022-09-11] MEDS: BUDESONIDE/FORMETEROL FUMARATE 160/4.5 mcg INHALER IH SCH ×2 (09:47→22:55)
[2022-09-11] MEDS ORDERED: methaDONE HCL 10 MG TABLET PO ONE (10:00)
[2022-09-11 11:58] LABS: ALBUMIN 3.4 g/dl (3.4-5.0); BLOOD UREA NITROGEN 27.8 mg/dL (7-18); CALCIUM 9.2 mg/dL (8.5-10.1)
[2022-09-11 12:01] LABS: CREATININE 1.1 mg/dL (0.55-1.3); PHOSPHOROUS 2.7 mg/dL (2.5-4.9)
[2022-09-11] MEDS: THIAMINE HCL 100 MG TABLET (FP) PO SCH (22:06)
[2022-09-11] MEDS: ATORVASTATIN CA 40 MG TABLET (FP) PO SCH (22:06)
[2022-09-11] MEDS: MELATONIN 5 MG TABLETS PO SCH (22:07)
[2022-09-12] MEDS: diazePAM 5 MG TABLET PO SCH ×2 (05:10→17:23)
[2022-09-12] MEDS ORDERED: methaDONE HCL 10 MG TABLET PO SCH (06:00)
[2022-09-12] MEDS: EMTRICITAB/RILPIVIRI/TENOF ALA (ODEFSEY) TABLET PO SCH (10:19)
[2022-09-12] MEDS: PRENATAL VITAMINS W/ FOLIC ACID TABLET (FP) PO SCH (10:19)
[2022-09-12] MEDS: BUDESONIDE/FORMETEROL FUMARATE 160/4.5 mcg INHALER IH SCH ×2 (10:19→22:29)
[2022-09-12] MEDS: NICOTINE 21 MG/24 HOURS TOPICAL PATCH TD SCH (10:20)
[2022-09-12] MEDS: THIAMINE HCL 100 MG TABLET (FP) PO SCH (22:29)
[2022-09-12] MEDS: ATORVASTATIN CA 40 MG TABLET (FP) PO SCH (22:29)
[2022-09-12] MEDS: MELATONIN 5 MG TABLETS PO SCH (22:30)
[2022-09-13] MEDS ORDERED: diazePAM 5 MG TABLET PO ONE (06:00)
[2022-09-13] MEDS: NICOTINE 21 MG/24 HOURS TOPICAL PATCH TD SCH (10:05)
[2022-09-13] MEDS: PRENATAL VITAMINS W/ FOLIC ACID TABLET (FP) PO SCH (10:06)
[2022-09-13] MEDS: EMTRICITAB/RILPIVIRI/TENOF ALA (ODEFSEY) TABLET PO SCH (10:06)
[2022-09-13] MEDS: BUDESONIDE/FORMETEROL FUMARATE 160/4.5 mcg INHALER IH SCH (10:09)
[2022-09-13 10:13] VITALS: BP 126/88; PULSE 54; RESP 16; TEMP 98.1
== END 2022-09-13 12:28 | disposition other institution (70) | DRG 897 ==
LOC: YASAS 09:58 → Y6N 15:28
PROVIDERS: ADMIT Allergy & Immunology; ATTEND Surgery
PROC: HZ2ZZZZ Detoxification Services for Substance Abuse Treatment (ICD-10-PCS; principal; 2022-09-09)
DX: F13.230 Sedative, hypnotic or anxiolytic dependence with withdrawal, uncomplicated (principal); F11.20 Opioid dependence, uncomplicated; F17.210 Nicotine dependence, cigarettes, uncomplicated; Z21 Asymptomatic human immunodeficiency virus [HIV] infection status; E78.5 Hyperlipidemia, unspecified; J43.9 Emphysema, unspecified; K21.9 Gastro-esophageal reflux disease without esophagitis
CPT/HCPCS: 36415; 80053; 80069; 85027; 86780; C9803-CS; U0003; U0005

== ENCOUNTER 2022-09-13 12:50 | Inpatient (IN) | payer OTHER ==
[2022-09-13] MEDS ORDERED: ACETAMINOPHEN 325 MG TABLET (FP) PO PRN (14:04)
[2022-09-13] MEDS ORDERED: P-EPHED 60MG/TRIPROLIDI 2.5MG TABLET PO PRN (14:04)
[2022-09-13] MEDS ORDERED: NICOTINE 10 MG CARTRIDGE (INHALER) IH PRN (14:04)
[2022-09-13] MEDS ORDERED: guaiFENesin 200 MG/10 ML 10 ML UNIT-DOSE CUPS PO PRN (14:04)
[2022-09-13] MEDS ORDERED: BENZOCAINE/MENTHOL (CHLORASEPTIC ) LOZENGE MM PRN (14:04)
[2022-09-13] MEDS ORDERED: POLYETHYLENE GLYCOL (HEALTHYLAX) 3350 17 GM PACKET PO PRN (14:04)
[2022-09-13] MEDS ORDERED: LOPERAMIDE HCL 2 MG CAPSULE PO PRN (14:04)
[2022-09-13] MEDS ORDERED: ALBUTEROL SO4 HFA INHALER IH PRN (14:09)
[2022-09-13] MEDS: ATORVASTATIN CA 40 MG TABLET (FP) PO SCH (21:37)
[2022-09-13] MEDS: MELATONIN 5 MG TABLETS PO SCH (21:37)
[2022-09-13] MEDS: THIAMINE HCL 100 MG TABLET (FP) PO SCH (21:37)
[2022-09-14] MEDS: EMTRICITAB/RILPIVIRI/TENOF ALA (ODEFSEY) TABLET PO SCH (07:01)
[2022-09-14] MEDS ORDERED: methaDONE HCL 40 MG DISPERSABLE TABLET PO SCH (10:00)
[2022-09-14] MEDS: PRENATAL VITAMINS W/ FOLIC ACID TABLET (FP) PO SCH (10:19)
[2022-09-14] MEDS: MELATONIN 5 MG TABLETS PO SCH (21:36)
[2022-09-14] MEDS: THIAMINE HCL 100 MG TABLET (FP) PO SCH (21:36)
[2022-09-14] MEDS: ATORVASTATIN CA 40 MG TABLET (FP) PO SCH (21:36)
[2022-09-15] MEDS: MAGNESIUM HYDROX 2400MG/30ML ORAL SUSPENSION 30 ML CUP PO PRN (06:18)
[2022-09-15] MEDS: EMTRICITAB/RILPIVIRI/TENOF ALA (ODEFSEY) TABLET PO SCH (07:05)
[2022-09-15] MEDS: PRENATAL VITAMINS W/ FOLIC ACID TABLET (FP) PO SCH (10:09)
[2022-09-15] MEDS: THIAMINE HCL 100 MG TABLET (FP) PO SCH (21:26)
[2022-09-15] MEDS: MELATONIN 5 MG TABLETS PO SCH (21:26)
[2022-09-15] MEDS: ATORVASTATIN CA 40 MG TABLET (FP) PO SCH (21:26)
[2022-09-15] MEDS: MAG HYDROX/AL HYDROX/SIMETH 30 ML UNIT-DOSE CUP PO PRN (21:27)
[2022-09-16] MEDS: EMTRICITAB/RILPIVIRI/TENOF ALA (ODEFSEY) TABLET PO SCH (07:01)
[2022-09-16] MEDS: PRENATAL VITAMINS W/ FOLIC ACID TABLET (FP) PO SCH (10:00)
[2022-09-16] MEDS: ATORVASTATIN CA 40 MG TABLET (FP) PO SCH (21:43)
[2022-09-16] MEDS: MELATONIN 5 MG TABLETS PO SCH (21:43)
[2022-09-16] MEDS: THIAMINE HCL 100 MG TABLET (FP) PO SCH (21:43)
[2022-09-16] MEDS: MAGNESIUM HYDROX 2400MG/30ML ORAL SUSPENSION 30 ML CUP PO PRN (21:43)
[2022-09-17] MEDS: EMTRICITAB/RILPIVIRI/TENOF ALA (ODEFSEY) TABLET PO SCH (07:02)
[2022-09-17] MEDS: PRENATAL VITAMINS W/ FOLIC ACID TABLET (FP) PO SCH (10:08)
[2022-09-17] MEDS: THIAMINE HCL 100 MG TABLET (FP) PO SCH (22:27)
[2022-09-17] MEDS: ATORVASTATIN CA 40 MG TABLET (FP) PO SCH (22:27)
[2022-09-17] MEDS: MELATONIN 5 MG TABLETS PO SCH (22:28)
[2022-09-18] MEDS: EMTRICITAB/RILPIVIRI/TENOF ALA (ODEFSEY) TABLET PO SCH (07:00)
[2022-09-18] MEDS: PRENATAL VITAMINS W/ FOLIC ACID TABLET (FP) PO SCH (09:56)
[2022-09-18] MEDS: ATORVASTATIN CA 40 MG TABLET (FP) PO SCH (21:17)
[2022-09-18] MEDS: THIAMINE HCL 100 MG TABLET (FP) PO SCH (21:17)
[2022-09-18] MEDS: MELATONIN 5 MG TABLETS PO SCH (21:17)
[2022-09-18] MEDS: MAG HYDROX/AL HYDROX/SIMETH 30 ML UNIT-DOSE CUP PO PRN (21:18)
[2022-09-18] MEDS ORDERED: ONDANSETRON *ODT* 4 MG TABLET SL ONE ×2 (23:25→23:45)
[2022-09-19] MEDS: EMTRICITAB/RILPIVIRI/TENOF ALA (ODEFSEY) TABLET PO SCH (07:00)
[2022-09-19] MEDS: PRENATAL VITAMINS W/ FOLIC ACID TABLET (FP) PO SCH (09:49)
[2022-09-19] MEDS: THIAMINE HCL 100 MG TABLET (FP) PO SCH (21:05)
[2022-09-19] MEDS: ATORVASTATIN CA 40 MG TABLET (FP) PO SCH (21:05)
[2022-09-19] MEDS: MELATONIN 5 MG TABLETS PO SCH (21:05)
[2022-09-19] MEDS: ONDANSETRON *ODT* 4 MG TABLET SL PRN (21:06)
[2022-09-19] MEDS: MAG HYDROX/AL HYDROX/SIMETH 30 ML UNIT-DOSE CUP PO PRN (22:26)
[2022-09-20] MEDS: ONDANSETRON *ODT* 4 MG TABLET SL PRN ×2 (04:03→10:46)
[2022-09-20] MEDS: EMTRICITAB/RILPIVIRI/TENOF ALA (ODEFSEY) TABLET PO SCH (07:11)
[2022-09-20] MEDS: PRENATAL VITAMINS W/ FOLIC ACID TABLET (FP) PO SCH (09:46)
[2022-09-20] MEDS: MELATONIN 5 MG TABLETS PO SCH (21:30)
[2022-09-20] MEDS: ATORVASTATIN CA 40 MG TABLET (FP) PO SCH (21:30)
[2022-09-20] MEDS: THIAMINE HCL 100 MG TABLET (FP) PO SCH (21:31)
[2022-09-20] MEDS: hydrOXYzine PAMOATE 25 MG CAPSULE (FP) PO PRN (21:31)
[2022-09-21] MEDS: EMTRICITAB/RILPIVIRI/TENOF ALA (ODEFSEY) TABLET PO SCH (07:02)
[2022-09-21] MEDS: PRENATAL VITAMINS W/ FOLIC ACID TABLET (FP) PO SCH (09:03)
[2022-09-21] MEDS: MELATONIN 5 MG TABLETS PO SCH (21:16)
[2022-09-21] MEDS: ATORVASTATIN CA 40 MG TABLET (FP) PO SCH (21:16)
[2022-09-21] MEDS: hydrOXYzine PAMOATE 25 MG CAPSULE (FP) PO PRN (21:16)
[2022-09-21] MEDS: THIAMINE HCL 100 MG TABLET (FP) PO SCH (21:16)
[2022-09-22] MEDS: EMTRICITAB/RILPIVIRI/TENOF ALA (ODEFSEY) TABLET PO SCH (07:02)
[2022-09-22] MEDS: ONDANSETRON *ODT* 4 MG TABLET SL PRN (09:00)
[2022-09-22] MEDS: PRENATAL VITAMINS W/ FOLIC ACID TABLET (FP) PO SCH (10:23)
[2022-09-22] MEDS: ATORVASTATIN CA 40 MG TABLET (FP) PO SCH (21:10)
[2022-09-22] MEDS: MELATONIN 5 MG TABLETS PO SCH (21:10)
[2022-09-22] MEDS: THIAMINE HCL 100 MG TABLET (FP) PO SCH (21:10)
[2022-09-23] MEDS: EMTRICITAB/RILPIVIRI/TENOF ALA (ODEFSEY) TABLET PO SCH (07:00)
[2022-09-23] MEDS: PRENATAL VITAMINS W/ FOLIC ACID TABLET (FP) PO SCH (09:50)
[2022-09-23] MEDS: MELATONIN 5 MG TABLETS PO SCH (21:07)
[2022-09-23] MEDS: ATORVASTATIN CA 40 MG TABLET (FP) PO SCH (21:07)
[2022-09-23] MEDS: THIAMINE HCL 100 MG TABLET (FP) PO SCH (21:07)
[2022-09-23] MEDS: hydrOXYzine PAMOATE 25 MG CAPSULE (FP) PO PRN (21:07)
[2022-09-24 06:25] VITALS: RESP 18
[2022-09-24] MEDS: EMTRICITAB/RILPIVIRI/TENOF ALA (ODEFSEY) TABLET PO SCH (07:04)
[2022-09-24] MEDS: PRENATAL VITAMINS W/ FOLIC ACID TABLET (FP) PO SCH (10:02)
[2022-09-24] MEDS: MELATONIN 5 MG TABLETS PO SCH (21:56)
[2022-09-24] MEDS: THIAMINE HCL 100 MG TABLET (FP) PO SCH (21:56)
[2022-09-24] MEDS: ATORVASTATIN CA 40 MG TABLET (FP) PO SCH (21:56)
[2022-09-25] MEDS: EMTRICITAB/RILPIVIRI/TENOF ALA (ODEFSEY) TABLET PO SCH (07:02)
[2022-09-25] MEDS: PRENATAL VITAMINS W/ FOLIC ACID TABLET (FP) PO SCH (09:39)
[2022-09-25] MEDS ORDERED: PRENATAL VITAMINS W/ FOLIC ACID TABLET (FP) PO PRN (12:39)
[2022-09-25] MEDS: ATORVASTATIN CA 40 MG TABLET (FP) PO SCH (21:27)
[2022-09-25] MEDS: MAG HYDROX/AL HYDROX/SIMETH 30 ML UNIT-DOSE CUP PO PRN (21:27)
[2022-09-25] MEDS: THIAMINE HCL 100 MG TABLET (FP) PO SCH (21:27)
[2022-09-25] MEDS: MELATONIN 5 MG TABLETS PO SCH (21:27)
[2022-09-26] MEDS: EMTRICITAB/RILPIVIRI/TENOF ALA (ODEFSEY) TABLET PO SCH (07:02)
[2022-09-26] MEDS: ATORVASTATIN CA 40 MG TABLET (FP) PO SCH (21:51)
[2022-09-26] MEDS: THIAMINE HCL 100 MG TABLET (FP) PO SCH (21:51)
[2022-09-26] MEDS: MELATONIN 5 MG TABLETS PO SCH (21:51)
[2022-09-27 06:52] VITALS: BP 112/73; PULSE 84; TEMP 98.2
[2022-09-27] MEDS: EMTRICITAB/RILPIVIRI/TENOF ALA (ODEFSEY) TABLET PO SCH (07:01)
== END 2022-09-27 08:55 | disposition home or self-care (01) | DRG 895 ==
LOC: YASAS 12:50 → Y3W 12:55
PROVIDERS: ADMIT Allergy & Immunology; ATTEND Psychiatry & Neurology Pain Medicine
PROC: HZ42ZZZ Group Counseling for Substance Abuse Treatment, Cognitive-Behavioral (ICD-10-PCS; principal; 2022-09-13)
DX: F13.20 Sedative, hypnotic or anxiolytic dependence, uncomplicated (principal); F11.20 Opioid dependence, uncomplicated; B20 Human immunodeficiency virus [HIV] disease; F17.210 Nicotine dependence, cigarettes, uncomplicated; F41.9 Anxiety disorder, unspecified; Z79.899 Other long term (current) drug therapy; E78.5 Hyperlipidemia, unspecified; J43.9 Emphysema, unspecified; Z86.19 Personal history of other infectious and parasitic diseases
CPT/HCPCS: 36415; 86803; 87522; Q0162

== ENCOUNTER 2022-11-21 09:44 | Inpatient (IN) | payer OTHER ==
[2022-11-21 09:59] VITALS: BMI 27.3
[2022-11-21] MEDS ORDERED: DICYCLOMINE HCL 10 MG CAPSULE PO PRN (10:25)
[2022-11-21] MEDS ORDERED: BISMUTH SUBSALICYLATE 262 MG/15 ML BTL PO PRN (10:25)
[2022-11-21] MEDS ORDERED: NICOTINE 10 MG CARTRIDGE (INHALER) IH PRN (10:25)
[2022-11-21] MEDS ORDERED: NALOXONE HCL 0.4 MG/ML VIAL IM PRN (10:25)
[2022-11-21] MEDS ORDERED: POLYETHYLENE GLYCOL (HEALTHYLAX) 3350 17 GM PACKET PO PRN (10:25)
[2022-11-21] MEDS ORDERED: hydrOXYzine PAMOATE 25 MG CAPSULE (FP) PO PRN (10:25)
[2022-11-21] MEDS ORDERED: ONDANSETRON *ODT* 4 MG TABLET SL PRN (10:25)
[2022-11-21] MEDS ORDERED: NICOTINE 14 MG/24 HOURS TOPICAL PATCH TD PRN (10:25)
[2022-11-21] MEDS ORDERED: IBUPROFEN 400 MG TABLET (FP) PO PRN (10:25)
[2022-11-21] MEDS ORDERED: BENZONATATE 200 MG CAPSULE PO PRN (10:25)
[2022-11-21] MEDS ORDERED: MAGNESIUM HYDROX 2400MG/30ML ORAL SUSPENSION 30 ML CUP PO PRN (10:25)
[2022-11-21] MEDS ORDERED: LOPERAMIDE HCL 2 MG CAPSULE PO PRN (10:25)
[2022-11-21] MEDS ORDERED: NALOXONE HCL (KLOXXADO) 8 MG SPRAY NS PRN (10:25)
[2022-11-21] MEDS ORDERED: ACETAMINOPHEN 325 MG TABLET (FP) PO PRN (10:25)
[2022-11-21] MEDS ORDERED: BENZOCAINE/MENTHOL (CHLORASEPTIC ) LOZENGE MM PRN (10:25)
[2022-11-21] MEDS ORDERED: MAG HYDROX/AL HYDROX/SIMETH 30 ML UNIT-DOSE CUP PO PRN (10:25)
[2022-11-21] MEDS ORDERED: NICOTINE POLACRILEX 2 MG GUM BUC PRN (10:25)
[2022-11-21] MEDS ORDERED: guaiFENesin 600 MG TABLET.ER (FP) PO PRN (10:25)
[2022-11-21] MEDS ORDERED: ALBUTEROL SO4 HFA INHALER IH PRN (10:30)
[2022-11-21] MEDS ORDERED: diazePAM 5 MG TABLET ONE (11:06)
[2022-11-21] MEDS: diazePAM 5 MG TABLET PO SCH ×3 (11:08→22:21)
[2022-11-21 17:25] LABS: HEMATOCRIT 38.7 % (35.4-49); MCH 32.2 pg (25.7-33.7); MCHC 33.5 g/dl (32.0-35.9); MEAN CELL VOLUME 96.1 fl (80-96); MEAN PLT VOLUME 10.1 fl (7.5-11.1); PLATELET COUNT 152 10^3/uL (134-434); RBC 4.03 M/mm3 (4.00-5.60); RDW 14.9 % (11.9-15.9)
[2022-11-21 17:37] LABS: ALBUMIN 3.5 g/dl (3.4-5.0); BLOOD UREA NITROGEN 31.7 mg/dL (7-18)
[2022-11-21 17:39] LABS: CALCIUM 8.6 mg/dL (8.5-10.1)
[2022-11-21 17:40] LABS: CREATININE 1.4 mg/dL (0.55-1.3)
[2022-11-21 17:42] LABS: TOT PROT 7.3 g/dl (6.4-8.2)
[2022-11-21 17:47] LABS: BILIRUBIN,TOTAL 0.7 mg/dL (0.2-1)
[2022-11-21] MEDS: MELATONIN 5 MG TABLETS PO SCH (22:21)
[2022-11-21] MEDS: THIAMINE HCL 100 MG TABLET (FP) PO SCH (22:21)
[2022-11-21] MEDS: BUDESONIDE/FORMETEROL FUMARATE 160/4.5 mcg INHALER IH SCH (22:21)
[2022-11-22] MEDS: diazePAM 5 MG TABLET PO SCH ×4 (05:49→22:17)
[2022-11-22] MEDS: EMTRICITAB/RILPIVIRI/TENOF ALA (ODEFSEY) TABLET PO SCH (09:02)
[2022-11-22] MEDS: BUDESONIDE/FORMETEROL FUMARATE 160/4.5 mcg INHALER IH SCH ×2 (10:19→22:16)
[2022-11-22] MEDS: PRENATAL VITAMINS W/ FOLIC ACID TABLET (FP) PO SCH (10:19)
[2022-11-22] MEDS: IBUPROFEN 600 MG TABLET (FP) PO PRN (12:20)
[2022-11-22] MEDS ORDERED: methaDONE HCL 10 MG TABLET PO SCH (12:30)
[2022-11-22] MEDS: THIAMINE HCL 100 MG TABLET (FP) PO SCH (22:16)
[2022-11-22] MEDS: MELATONIN 5 MG TABLETS PO SCH (22:17)
[2022-11-23] MEDS: diazePAM 5 MG TABLET PO SCH ×3 (05:26→22:16)
[2022-11-23] MEDS: EMTRICITAB/RILPIVIRI/TENOF ALA (ODEFSEY) TABLET PO SCH (07:13)
[2022-11-23] MEDS: PRENATAL VITAMINS W/ FOLIC ACID TABLET (FP) PO SCH (10:30)
[2022-11-23] MEDS: BUDESONIDE/FORMETEROL FUMARATE 160/4.5 mcg INHALER IH SCH ×2 (10:30→22:15)
[2022-11-23] MEDS: METHOCARBAMOL 500 MG TABLET PO PRN ×2 (13:44→22:18)
[2022-11-23] MEDS: THIAMINE HCL 100 MG TABLET (FP) PO SCH (22:15)
[2022-11-23] MEDS: MELATONIN 5 MG TABLETS PO SCH (22:15)
[2022-11-24] MEDS: diazePAM 5 MG TABLET PO SCH ×2 (05:25→17:07)
[2022-11-24] MEDS: EMTRICITAB/RILPIVIRI/TENOF ALA (ODEFSEY) TABLET PO SCH (07:01)
[2022-11-24] MEDS: BUDESONIDE/FORMETEROL FUMARATE 160/4.5 mcg INHALER IH SCH ×2 (10:22→22:59)
[2022-11-24] MEDS: PRENATAL VITAMINS W/ FOLIC ACID TABLET (FP) PO SCH (10:22)
[2022-11-24] MEDS: METHOCARBAMOL 500 MG TABLET PO PRN (10:22)
[2022-11-24] MEDS: MELATONIN 5 MG TABLETS PO SCH (22:58)
[2022-11-24] MEDS: THIAMINE HCL 100 MG TABLET (FP) PO SCH (22:59)
[2022-11-25] MEDS ORDERED: diazePAM 5 MG TABLET PO ONE (06:00)
[2022-11-25] MEDS: EMTRICITAB/RILPIVIRI/TENOF ALA (ODEFSEY) TABLET PO SCH (07:01)
[2022-11-25] MEDS: PRENATAL VITAMINS W/ FOLIC ACID TABLET (FP) PO SCH (11:16)
[2022-11-25] MEDS: BUDESONIDE/FORMETEROL FUMARATE 160/4.5 mcg INHALER IH SCH ×2 (11:17→21:51)
[2022-11-25] MEDS: IBUPROFEN 600 MG TABLET (FP) PO PRN (11:18)
[2022-11-25] MEDS: THIAMINE HCL 100 MG TABLET (FP) PO SCH (21:48)
[2022-11-25] MEDS: MELATONIN 5 MG TABLETS PO SCH (21:48)
[2022-11-26 06:13] VITALS: RESP 16
[2022-11-26] MEDS: EMTRICITAB/RILPIVIRI/TENOF ALA (ODEFSEY) TABLET PO SCH (08:00)
[2022-11-26 10:04] VITALS: BP 132/71; PULSE 60; TEMP 98.1
[2022-11-26] MEDS: PRENATAL VITAMINS W/ FOLIC ACID TABLET (FP) PO SCH (10:25)
[2022-11-26] MEDS: BUDESONIDE/FORMETEROL FUMARATE 160/4.5 mcg INHALER IH SCH (10:25)
[2022-11-26] MEDS: IBUPROFEN 600 MG TABLET (FP) PO PRN (10:30)
== END 2022-11-26 14:00 | disposition home or self-care (01) | DRG 897 ==
LOC: YASAS 09:44 → Y6N 10:46
PROVIDERS: ADMIT Allergy & Immunology; ATTEND Surgery
PROC: HZ2ZZZZ Detoxification Services for Substance Abuse Treatment (ICD-10-PCS; principal; 2022-11-21)
DX: F13.230 Sedative, hypnotic or anxiolytic dependence with withdrawal, uncomplicated (principal); F11.20 Opioid dependence, uncomplicated; F19.282 Other psychoactive substance dependence with psychoactive substance-induced sleep disorder; F17.220 Nicotine dependence, chewing tobacco, uncomplicated; F17.210 Nicotine dependence, cigarettes, uncomplicated; F19.24 Other psychoactive substance dependence with psychoactive substance-induced mood disorder; Z21 Asymptomatic human immunodeficiency virus [HIV] infection status; J43.9 Emphysema, unspecified; R73.03 Prediabetes; Z99.89 Dependence on other enabling machines and devices
CPT/HCPCS: 36415; 80053; 85027; 86780; 87811; C9803-CS; U0003; U0005

== ENCOUNTER 2023-01-25 11:24 | Inpatient (IN) | payer OTHER ==
[2023-01-25 12:02] VITALS: BMI 26.4
[2023-01-25] MEDS ORDERED: MAGNESIUM HYDROX 2400MG/30ML ORAL SUSPENSION 30 ML CUP PO PRN (14:06)
[2023-01-25] MEDS ORDERED: POLYETHYLENE GLYCOL (HEALTHYLAX) 3350 17 GM PACKET PO PRN (14:06)
[2023-01-25] MEDS ORDERED: BENZONATATE 200 MG CAPSULE PO PRN (14:06)
[2023-01-25] MEDS ORDERED: NICOTINE 10 MG CARTRIDGE (INHALER) IH PRN (14:06)
[2023-01-25] MEDS ORDERED: guaiFENesin 600 MG TABLET.ER (FP) PO PRN (14:06)
[2023-01-25] MEDS ORDERED: COLLOIDAL OATMEAL 1 BAR EACH TP PRN (14:06)
[2023-01-25] MEDS ORDERED: IBUPROFEN 400 MG TABLET (FP) PO PRN (14:06)
[2023-01-25] MEDS ORDERED: LOPERAMIDE HCL 2 MG CAPSULE PO PRN (14:06)
[2023-01-25] MEDS ORDERED: ONDANSETRON *ODT* 4 MG TABLET SL PRN (14:06)
[2023-01-25] MEDS ORDERED: IBUPROFEN 600 MG TABLET (FP) PO PRN (14:06)
[2023-01-25] MEDS ORDERED: AMMONIUM LACTATE 12% LOTION 225 GM BOTTLE TP PRN (14:06)
[2023-01-25] MEDS ORDERED: NALOXONE HCL (KLOXXADO) 8 MG SPRAY NS PRN (14:06)
[2023-01-25] MEDS ORDERED: METHOCARBAMOL 500 MG TABLET PO PRN (14:06)
[2023-01-25] MEDS ORDERED: NICOTINE POLACRILEX 2 MG GUM BUC PRN (14:06)
[2023-01-25] MEDS ORDERED: BENZOCAINE/MENTHOL (CHLORASEPTIC ) LOZENGE MM PRN (14:06)
[2023-01-25] MEDS ORDERED: DICYCLOMINE HCL 10 MG CAPSULE PO PRN (14:06)
[2023-01-25] MEDS ORDERED: BISMUTH SUBSALICYLATE 262 MG/15 ML BTL PO PRN (14:06)
[2023-01-25] MEDS ORDERED: NALOXONE HCL 0.4 MG/ML VIAL IM PRN (14:06)
[2023-01-25] MEDS ORDERED: MAG HYDROX/AL HYDROX/SIMETH 30 ML UNIT-DOSE CUP PO PRN (14:06)
[2023-01-25] MEDS ORDERED: ACETAMINOPHEN 325 MG TABLET (FP) PO PRN (14:06)
[2023-01-25] MEDS ORDERED: ALBUTEROL SO4 HFA INHALER IH ONE (16:03)
[2023-01-25] MEDS: ALBUTEROL SO4 HFA INHALER IH SCH ×3 (16:08→22:05)
[2023-01-25 16:16] LABS: POTASSIUM 4.8 mmol/L (3.5-5.1)
[2023-01-25 16:17] LABS: HEMATOCRIT 40.3 % (35.4-49); HEMOGLOBIN 13.4 GM/dL (11.7-16.9); MCH 32.1 pg (25.7-33.7); MCHC 33.3 g/dl (32.0-35.9); MEAN CELL VOLUME 96.3 fl (80-96); MEAN PLT VOLUME 10.5 fl (7.5-11.1); PLATELET COUNT 153 10^3/uL (134-434); RBC 4.19 M/mm3 (4.00-5.60); RDW 14.3 % (11.9-15.9); WHITE BLOOD COUNT 7.3 K/mm3 (4.0-10.0)
[2023-01-25 16:20] LABS: ALBUMIN 3.4 g/dl (3.4-5.0); CALCIUM 9.1 mg/dL (8.5-10.1)
[2023-01-25 16:23] LABS: CREATININE 1.5 mg/dL (0.55-1.3)
[2023-01-25 16:25] LABS: TOT PROT 7.4 g/dl (6.4-8.2)
[2023-01-25 16:27] LABS: BILIRUBIN,TOTAL 0.6 mg/dL (0.2-1); BLOOD UREA NITROGEN 29.3 mg/dL (7-18)
[2023-01-25] MEDS: diazePAM 5 MG TABLET PO SCH ×2 (18:18→22:07)
[2023-01-25] MEDS: MELATONIN 5 MG TABLETS PO SCH (22:04)
[2023-01-25] MEDS: THIAMINE HCL 100 MG TABLET (FP) PO SCH (22:04)
[2023-01-26] MEDS: ALBUTEROL SO4 HFA INHALER IH SCH ×6 (04:36→22:47)
[2023-01-26] MEDS: diazePAM 5 MG TABLET PO SCH ×4 (05:48→22:47)
[2023-01-26] MEDS ORDERED: methaDONE HCL 10 MG TABLET PO SCH ×2 (06:00→09:45)
[2023-01-26] MEDS: EMTRICITAB/RILPIVIRI/TENOF ALA (ODEFSEY) TABLET PO SCH (08:49)
[2023-01-26] MEDS: PRENATAL VITAMINS W/ FOLIC ACID TABLET (FP) PO SCH (10:52)
[2023-01-26] MEDS: MELATONIN 5 MG TABLETS PO SCH (22:46)
[2023-01-26] MEDS: THIAMINE HCL 100 MG TABLET (FP) PO SCH (22:46)
[2023-01-27] MEDS: ALBUTEROL SO4 HFA INHALER IH SCH ×6 (02:09→22:13)
[2023-01-27] MEDS: diazePAM 5 MG TABLET PO SCH ×3 (05:40→22:11)
[2023-01-27] MEDS ORDERED: methaDONE HCL 10 MG TABLET PO SCH (06:00)
[2023-01-27] MEDS: EMTRICITAB/RILPIVIRI/TENOF ALA (ODEFSEY) TABLET PO SCH (07:07)
[2023-01-27] MEDS: PRENATAL VITAMINS W/ FOLIC ACID TABLET (FP) PO SCH (10:33)
[2023-01-27] MEDS: diazePAM 5 MG TABLET PO PRN (10:35)
[2023-01-27] MEDS: THIAMINE HCL 100 MG TABLET (FP) PO SCH (22:11)
[2023-01-27] MEDS: MELATONIN 5 MG TABLETS PO SCH (22:11)
[2023-01-28] MEDS: ALBUTEROL SO4 HFA INHALER IH SCH ×6 (02:15→22:12)
[2023-01-28] MEDS: diazePAM 5 MG TABLET PO SCH ×2 (05:35→17:50)
[2023-01-28] MEDS: EMTRICITAB/RILPIVIRI/TENOF ALA (ODEFSEY) TABLET PO SCH (07:07)
[2023-01-28] MEDS: PRENATAL VITAMINS W/ FOLIC ACID TABLET (FP) PO SCH (10:20)
[2023-01-28] MEDS: diazePAM 5 MG TABLET PO PRN (13:27)
[2023-01-28] MEDS: THIAMINE HCL 100 MG TABLET (FP) PO SCH (22:11)
[2023-01-28] MEDS: MELATONIN 5 MG TABLETS PO SCH (22:11)
[2023-01-29] MEDS: ALBUTEROL SO4 HFA INHALER IH SCH ×4 (02:15→13:49)
[2023-01-29] MEDS ORDERED: diazePAM 5 MG TABLET PO ONE (06:00)
[2023-01-29] MEDS: EMTRICITAB/RILPIVIRI/TENOF ALA (ODEFSEY) TABLET PO SCH (07:03)
[2023-01-29 09:02] VITALS: RESP 16
[2023-01-29] MEDS: PRENATAL VITAMINS W/ FOLIC ACID TABLET (FP) PO SCH (09:25)
[2023-01-29 12:50] VITALS: BP 136/81; PULSE 50; TEMP 97.8
== END 2023-01-29 14:10 | disposition other institution (70) | DRG 897 ==
LOC: YASAS 11:24 → Y3N 14:43
PROVIDERS: ADMIT Allergy & Immunology; ATTEND Surgery
PROC: HZ2ZZZZ Detoxification Services for Substance Abuse Treatment (ICD-10-PCS; principal; 2023-01-25)
DX: F13.230 Sedative, hypnotic or anxiolytic dependence with withdrawal, uncomplicated (principal); F11.20 Opioid dependence, uncomplicated; F17.210 Nicotine dependence, cigarettes, uncomplicated; F19.24 Other psychoactive substance dependence with psychoactive substance-induced mood disorder; Z21 Asymptomatic human immunodeficiency virus [HIV] infection status; J43.9 Emphysema, unspecified; E78.5 Hyperlipidemia, unspecified; E11.9 Type 2 diabetes mellitus without complications; Z79.84 Long term (current) use of oral hypoglycemic drugs; Z99.89 Dependence on other enabling machines and devices
CPT/HCPCS: 36415; 80053; 85027; 86780; 87811; 93005; 93010; C9803-CS; U0003; U0005

== ENCOUNTER 2023-01-29 14:08 | Inpatient (IN) | payer OTHER ==
[2023-01-29] MEDS ORDERED: NALOXONE HCL (KLOXXADO) 8 MG SPRAY NS PRN (15:58)
[2023-01-29] MEDS ORDERED: BACLOFEN 10 MG TABLET (FP) PO PRN (15:58)
[2023-01-29] MEDS ORDERED: MAGNESIUM HYDROX 2400MG/30ML ORAL SUSPENSION 30 ML CUP PO PRN (15:58)
[2023-01-29] MEDS ORDERED: POLYETHYLENE GLYCOL (HEALTHYLAX) 3350 17 GM PACKET PO PRN (15:58)
[2023-01-29] MEDS ORDERED: BENZONATATE 200 MG CAPSULE PO PRN (15:58)
[2023-01-29] MEDS ORDERED: COLLOIDAL OATMEAL 1 BAR EACH TP PRN (15:58)
[2023-01-29] MEDS ORDERED: NICOTINE POLACRILEX 4 MG GUM BUC PRN (15:58)
[2023-01-29] MEDS ORDERED: ACETAMINOPHEN 325 MG TABLET (FP) PO PRN (15:58)
[2023-01-29] MEDS ORDERED: hydrOXYzine PAMOATE 25 MG CAPSULE (FP) PO PRN (15:58)
[2023-01-29] MEDS ORDERED: IBUPROFEN 400 MG TABLET (FP) PO PRN (15:58)
[2023-01-29] MEDS ORDERED: NALOXONE HCL 0.4 MG/ML VIAL IVPUSH PRN (15:58)
[2023-01-29] MEDS ORDERED: AMMONIUM LACTATE 12% LOTION 225 GM BOTTLE TP PRN (15:58)
[2023-01-29] MEDS ORDERED: NICOTINE 10 MG CARTRIDGE (INHALER) IH PRN (15:58)
[2023-01-29] MEDS ORDERED: NICOTINE 7 MG/24 HOURS TOPICAL PATCH TD PRN (15:58)
[2023-01-29] MEDS ORDERED: MAG HYDROX/AL HYDROX/SIMETH 30 ML UNIT-DOSE CUP PO PRN (15:58)
[2023-01-29] MEDS ORDERED: BENZOCAINE/MENTHOL (CHLORASEPTIC ) LOZENGE MM PRN (15:58)
[2023-01-29] MEDS ORDERED: LOPERAMIDE HCL 2 MG CAPSULE PO PRN (15:58)
[2023-01-29] MEDS ORDERED: guaiFENesin 600 MG TABLET.ER (FP) PO PRN (15:58)
[2023-01-29] MEDS ORDERED: IBUPROFEN 600 MG TABLET (FP) PO PRN (15:58)
[2023-01-29] MEDS ORDERED: ALBUTEROL SO4 HFA INHALER IH PRN (16:00)
[2023-01-29] MEDS: MELATONIN 5 MG TABLETS PO SCH (21:17)
[2023-01-29] MEDS: THIAMINE HCL 100 MG TABLET (FP) PO SCH (21:17)
[2023-01-30 06:40] VITALS: RESP 16
[2023-01-30] MEDS: EMTRICITAB/RILPIVIRI/TENOF ALA (ODEFSEY) TABLET PO SCH (09:36)
[2023-01-30] MEDS: PRENATAL VITAMINS W/ FOLIC ACID TABLET (FP) PO SCH (09:36)
[2023-01-30] MEDS ORDERED: methaDONE HCL 40 MG DISPERSABLE TABLET PO SCH (10:00)
[2023-01-30] MEDS: MELATONIN 5 MG TABLETS PO SCH (21:32)
[2023-01-30] MEDS: THIAMINE HCL 100 MG TABLET (FP) PO SCH (21:32)
[2023-01-31] MEDS: PRENATAL VITAMINS W/ FOLIC ACID TABLET (FP) PO SCH (09:43)
[2023-01-31] MEDS: EMTRICITAB/RILPIVIRI/TENOF ALA (ODEFSEY) TABLET PO SCH (09:45)
[2023-01-31] MEDS: MELATONIN 5 MG TABLETS PO SCH (21:13)
[2023-01-31] MEDS: THIAMINE HCL 100 MG TABLET (FP) PO SCH (21:13)
[2023-02-01 06:40] VITALS: BP 151/86; PULSE 62; TEMP 98.2
== END 2023-02-01 09:30 | disposition home or self-care (01) | DRG 895 ==
LOC: YASAS 14:08 → Y3E 14:13
PROVIDERS: ADMIT Allergy & Immunology; ATTEND Psychiatry & Neurology Pain Medicine
PROC: HZ42ZZZ Group Counseling for Substance Abuse Treatment, Cognitive-Behavioral (ICD-10-PCS; principal; 2023-01-29)
DX: F13.20 Sedative, hypnotic or anxiolytic dependence, uncomplicated (principal); F11.20 Opioid dependence, uncomplicated; F19.282 Other psychoactive substance dependence with psychoactive substance-induced sleep disorder; F17.210 Nicotine dependence, cigarettes, uncomplicated; Z21 Asymptomatic human immunodeficiency virus [HIV] infection status; E78.5 Hyperlipidemia, unspecified; J43.9 Emphysema, unspecified; R73.03 Prediabetes; Z86.19 Personal history of other infectious and parasitic diseases; Z99.89 Dependence on other enabling machines and devices
CPT/HCPCS: 36415; 86803; 87522

== ENCOUNTER 2023-06-12 13:31 | Inpatient (IN) | payer OTHER ==
[2023-06-12 14:38] VITALS: BMI 26.4
[2023-06-12] MEDS ORDERED: BENZONATATE 200 MG CAPSULE PO PRN (17:04)
[2023-06-12] MEDS ORDERED: LOPERAMIDE HCL 2 MG CAPSULE PO PRN (17:04)
[2023-06-12] MEDS ORDERED: guaiFENesin 600 MG TABLET.ER (FP) PO PRN (17:04)
[2023-06-12] MEDS ORDERED: MAG HYDROX/AL HYDROX/SIMETH 30 ML UNIT-DOSE CUP PO PRN (17:04)
[2023-06-12] MEDS ORDERED: IBUPROFEN 400 MG TABLET (FP) PO PRN (17:04)
[2023-06-12] MEDS ORDERED: IBUPROFEN 600 MG TABLET (FP) PO PRN (17:04)
[2023-06-12] MEDS ORDERED: DICYCLOMINE HCL 10 MG CAPSULE PO PRN (17:04)
[2023-06-12] MEDS ORDERED: NALOXONE HCL (KLOXXADO) 8 MG SPRAY NS PRN (17:04)
[2023-06-12] MEDS ORDERED: BACLOFEN 10 MG TABLET (FP) PO PRN (17:04)
[2023-06-12] MEDS ORDERED: LORazepam 1 MG TABLET PO PRN (17:04)
[2023-06-12] MEDS ORDERED: ONDANSETRON *ODT* 4 MG TABLET SL PRN (17:04)
[2023-06-12] MEDS ORDERED: BENZOCAINE/MENTHOL (CHLORASEPTIC ) LOZENGE MM PRN (17:04)
[2023-06-12] MEDS ORDERED: NALOXONE HCL 0.4 MG/ML VIAL IM PRN (17:04)
[2023-06-12] MEDS ORDERED: NICOTINE POLACRILEX 2 MG GUM BUC PRN (17:04)
[2023-06-12] MEDS ORDERED: MAGNESIUM HYDROX 2400MG/30ML ORAL SUSPENSION 30 ML CUP PO PRN (17:04)
[2023-06-12] MEDS ORDERED: ACETAMINOPHEN 325 MG TABLET (FP) PO PRN (17:04)
[2023-06-12] MEDS ORDERED: hydrOXYzine PAMOATE 25 MG CAPSULE (FP) PO PRN (17:04)
[2023-06-12] MEDS ORDERED: BISMUTH SUBSALICYLATE 524 MG/30 ML PO PRN (17:04)
[2023-06-12] MEDS ORDERED: POLYETHYLENE GLYCOL (HEALTHYLAX) 3350 17 GM PACKET PO PRN (17:04)
[2023-06-12] MEDS ORDERED: ALBUTEROL SO4 HFA INHALER IH PRN (17:52)
[2023-06-12] MEDS: THIAMINE HCL 100 MG TABLET (FP) PO SCH (22:17)
[2023-06-12] MEDS: MELATONIN 5 MG TABLETS PO SCH (22:17)
[2023-06-12] MEDS ORDERED: LORazepam 2 MG TABLET PO SCH (23:00)
[2023-06-12] MEDS: LORazepam 1 MG TABLET PO SCH (23:11)
[2023-06-13] MEDS: LORazepam 1 MG TABLET PO SCH ×4 (05:33→22:01)
[2023-06-13] MEDS ORDERED: methaDONE HCL 10 MG TABLET PO ONE (10:00)
[2023-06-13 10:41] LABS: HEMATOCRIT 38.7 % (35.4-49); HEMOGLOBIN 13.1 GM/dL (11.7-16.9); MCHC 33.9 g/dl (32.0-35.9); MEAN CELL VOLUME 97.5 fl (80-96); MEAN PLT VOLUME 10.6 fl (7.5-11.1); PLATELET COUNT 134 10^3/uL (134-434); RBC 3.97 M/mm3 (4.00-5.60); RDW 15.2 % (11.9-15.9); WHITE BLOOD COUNT 5.9 K/mm3 (4.0-10.0)
[2023-06-13] MEDS: EMTRICITAB/RILPIVIRI/TENOF ALA (ODEFSEY) TABLET PO SCH (10:42)
[2023-06-13] MEDS: PRENATAL VITAMINS W/ FOLIC ACID TABLET (FP) PO SCH (10:42)
[2023-06-13] MEDS: NICOTINE 14 MG/24 HOURS TOPICAL PATCH TD SCH (10:42)
[2023-06-13 10:48] LABS: POTASSIUM 4.7 mmol/L (3.5-5.1)
[2023-06-13 10:52] LABS: ALBUMIN 3.1 g/dl (3.4-5.0); CALCIUM 8.5 mg/dL (8.5-10.1)
[2023-06-13 10:55] LABS: CREATININE 1.1 mg/dL (0.55-1.3)
[2023-06-13 10:57] LABS: BILIRUBIN,TOTAL 0.6 mg/dL (0.2-1); TOT PROT 6.8 g/dl (6.4-8.2)
[2023-06-13] MEDS ORDERED: ACETAMINOPHEN 325 MG TABLET (FP) PO PRN (11:21)
[2023-06-13] MEDS: LIDOCAINE 5% TOPICAL PATCH TP SCH (13:33)
[2023-06-13] MEDS: THIAMINE HCL 100 MG TABLET (FP) PO SCH (22:01)
[2023-06-13] MEDS: MELATONIN 5 MG TABLETS PO SCH (22:01)
[2023-06-13] MEDS: LIDOCAINE PATCH REMOVAL MC SCH (22:03)
[2023-06-14] MEDS: LORazepam 1 MG TABLET PO SCH ×4 (05:05→22:05)
[2023-06-14] MEDS ORDERED: methaDONE HCL 10 MG TABLET PO SCH (06:00)
[2023-06-14] MEDS: LIDOCAINE 5% TOPICAL PATCH TP SCH (10:22)
[2023-06-14] MEDS: NICOTINE 14 MG/24 HOURS TOPICAL PATCH TD SCH (10:23)
[2023-06-14] MEDS: EMTRICITAB/RILPIVIRI/TENOF ALA (ODEFSEY) TABLET PO SCH (10:23)
[2023-06-14] MEDS: PRENATAL VITAMINS W/ FOLIC ACID TABLET (FP) PO SCH (10:24)
[2023-06-14] MEDS: MELATONIN 5 MG TABLETS PO SCH (22:05)
[2023-06-14] MEDS: THIAMINE HCL 100 MG TABLET (FP) PO SCH (22:05)
[2023-06-14] MEDS: LIDOCAINE PATCH REMOVAL MC SCH (22:06)
[2023-06-15] MEDS ORDERED: LORazepam 0.5 MG TABLET PO PRN
[2023-06-15] MEDS: LORazepam 0.5 MG TABLET PO SCH ×4 (05:36→22:46)
[2023-06-15 09:00] VITALS: RESP 16
[2023-06-15] MEDS: LIDOCAINE 5% TOPICAL PATCH TP SCH (10:43)
[2023-06-15] MEDS: NICOTINE 14 MG/24 HOURS TOPICAL PATCH TD SCH (10:43)
[2023-06-15] MEDS: PRENATAL VITAMINS W/ FOLIC ACID TABLET (FP) PO SCH (10:44)
[2023-06-15] MEDS: EMTRICITAB/RILPIVIRI/TENOF ALA (ODEFSEY) TABLET PO SCH (10:54)
[2023-06-15] MEDS: LIDOCAINE PATCH REMOVAL MC SCH (22:45)
[2023-06-15] MEDS: THIAMINE HCL 100 MG TABLET (FP) PO SCH (22:45)
[2023-06-15] MEDS: MELATONIN 5 MG TABLETS PO SCH (22:45)
[2023-06-16] MEDS ORDERED: LORazepam 0.5 MG TABLET PO ONE (05:00)
[2023-06-16 09:32] VITALS: BP 112/65; PULSE 60; TEMP 97.8
[2023-06-16] MEDS: LIDOCAINE 5% TOPICAL PATCH TP SCH (09:47)
[2023-06-16] MEDS: PRENATAL VITAMINS W/ FOLIC ACID TABLET (FP) PO SCH (09:47)
[2023-06-16] MEDS: EMTRICITAB/RILPIVIRI/TENOF ALA (ODEFSEY) TABLET PO SCH (09:48)
[2023-06-16] MEDS: NICOTINE 14 MG/24 HOURS TOPICAL PATCH TD SCH (09:48)
== END 2023-06-16 10:10 | disposition other institution (70) | DRG 897 ==
LOC: YASAS 13:31 → Y6N 17:19 → UNDOADMIN 17:19 → Y6N 06-13 21:22
PROVIDERS: ADMIT Allergy & Immunology; ATTEND Surgery
PROC: HZ2ZZZZ Detoxification Services for Substance Abuse Treatment (ICD-10-PCS; principal; 2023-06-13)
DX: F13.230 Sedative, hypnotic or anxiolytic dependence with withdrawal, uncomplicated (principal); F11.20 Opioid dependence, uncomplicated; F17.210 Nicotine dependence, cigarettes, uncomplicated; F41.9 Anxiety disorder, unspecified; Z21 Asymptomatic human immunodeficiency virus [HIV] infection status; K21.9 Gastro-esophageal reflux disease without esophagitis; Z86.19 Personal history of other infectious and parasitic diseases; Z99.89 Dependence on other enabling machines and devices
CPT/HCPCS: 36415; 80053; 84520; 85027; 86780; 87635; 93005; 93010

== ENCOUNTER 2023-06-13 18:59 | Emergency (ER) | payer OTHER ==
[2023-06-13 19:50] VITALS: BP 100/81; PULSE 60; RESP 17; TEMP 98.7; BMI 25.7
== END 2023-06-13 21:01 | disposition home or self-care (01) ==
LOC: JER 18:59
DX: R94.31 Abnormal electrocardiogram [ECG] [EKG] (principal); I49.3 Ventricular premature depolarization
CPT/HCPCS: 99283-25

== ENCOUNTER 2023-09-26 10:39 | Inpatient (IN) | payer OTHER ==
[2023-09-26 10:59] VITALS: BMI 23.9
[2023-09-26] MEDS ORDERED: LOPERAMIDE HCL 2 MG CAPSULE PO PRN (12:32)
[2023-09-26] MEDS ORDERED: BENZONATATE 200 MG CAPSULE PO PRN (12:32)
[2023-09-26] MEDS ORDERED: IBUPROFEN 600 MG TABLET (FP) PO PRN (12:32)
[2023-09-26] MEDS ORDERED: LORazepam 1 MG TABLET PO PRN (12:32)
[2023-09-26] MEDS ORDERED: POLYETHYLENE GLYCOL (HEALTHYLAX) 3350 17 GM PACKET PO PRN (12:32)
[2023-09-26] MEDS ORDERED: IBUPROFEN 400 MG TABLET (FP) PO PRN (12:32)
[2023-09-26] MEDS ORDERED: NALOXONE HCL 0.4 MG/ML VIAL IM PRN (12:32)
[2023-09-26] MEDS ORDERED: METHOCARBAMOL 500 MG TABLET PO PRN (12:32)
[2023-09-26] MEDS ORDERED: ONDANSETRON *ODT* 4 MG TABLET SL PRN (12:32)
[2023-09-26] MEDS ORDERED: NALOXONE HCL (KLOXXADO) 8 MG SPRAY NS PRN (12:32)
[2023-09-26] MEDS ORDERED: guaiFENesin 600 MG TABLET.ER (FP) PO PRN (12:32)
[2023-09-26] MEDS ORDERED: BENZOCAINE/MENTHOL (CHLORASEPTIC ) LOZENGE MM PRN (12:32)
[2023-09-26] MEDS ORDERED: hydrOXYzine PAMOATE 25 MG CAPSULE (FP) PO PRN (12:32)
[2023-09-26] MEDS ORDERED: BISMUTH SUBSALICYLATE 524 MG/30 ML PO PRN (12:32)
[2023-09-26] MEDS ORDERED: DICYCLOMINE HCL 10 MG CAPSULE PO PRN (12:32)
[2023-09-26] MEDS ORDERED: ACETAMINOPHEN 325 MG TABLET (FP) PO PRN (12:32)
[2023-09-26] MEDS ORDERED: MAGNESIUM HYDROX 2400MG/30ML ORAL SUSPENSION 30 ML CUP PO PRN (12:32)
[2023-09-26] MEDS ORDERED: MAG HYDROX/AL HYDROX/SIMETH 30 ML UNIT-DOSE CUP PO PRN (12:32)
[2023-09-26] MEDS ORDERED: PRENATAL VITAMINS W/ FOLIC ACID TABLET (FP) PO SCH (13:00)
[2023-09-26] MEDS: NICOTINE 14 MG/24 HOURS TOPICAL PATCH TD SCH (13:50)
[2023-09-26] MEDS: PRENATAL VITAMINS W/ FOLIC ACID TABLET (FP) PO SCH (13:51)
[2023-09-26] MEDS: LORazepam 1 MG TABLET PO SCH ×2 (17:33→22:27)
[2023-09-26] MEDS: THIAMINE HCL 100 MG TABLET (FP) PO SCH (22:27)
[2023-09-26] MEDS: MELATONIN 5 MG TABLETS PO SCH (22:27)
[2023-09-27] MEDS: LORazepam 1 MG TABLET PO SCH ×4 (05:28→22:10)
[2023-09-27] MEDS ORDERED: methaDONE HCL 10 MG TABLET PO SCH (06:00)
[2023-09-27] MEDS: PRENATAL VITAMINS W/ FOLIC ACID TABLET (FP) PO SCH (10:04)
[2023-09-27] MEDS: NICOTINE 14 MG/24 HOURS TOPICAL PATCH TD SCH (10:04)
[2023-09-27 10:50] LABS: HEMATOCRIT 39.7 % (35.4-49); HEMOGLOBIN 13.2 GM/dL (11.7-16.9); MCH 32.5 pg (25.7-33.7); MCHC 33.3 g/dl (32.0-35.9); MEAN CELL VOLUME 97.6 fl (80-96); MEAN PLT VOLUME 11.9 fl (7.5-11.1); PLATELET COUNT 120 10^3/uL (134-434); RBC 4.07 M/mm3 (4.00-5.60); RDW 14.9 % (11.9-15.9)
[2023-09-27 10:54] LABS: POTASSIUM 4.5 mmol/L (3.5-5.1)
[2023-09-27 10:57] LABS: ALBUMIN 3.4 g/dl (3.4-5.0); CALCIUM 8.9 mg/dL (8.5-10.1)
[2023-09-27 11:02] LABS: BILIRUBIN,TOTAL 0.6 mg/dL (0.2-1); CREATININE 1.2 mg/dL (0.55-1.3)
[2023-09-27 11:04] LABS: TOT PROT 7.5 g/dl (6.4-8.2)
[2023-09-27] MEDS: MELATONIN 5 MG TABLETS PO SCH (22:08)
[2023-09-27] MEDS: THIAMINE HCL 100 MG TABLET (FP) PO SCH (22:08)
[2023-09-28] MEDS: LORazepam 1 MG TABLET PO SCH ×4 (05:29→22:21)
[2023-09-28] MEDS: PRENATAL VITAMINS W/ FOLIC ACID TABLET (FP) PO SCH (10:08)
[2023-09-28] MEDS: NICOTINE 14 MG/24 HOURS TOPICAL PATCH TD SCH (10:10)
[2023-09-28] MEDS ORDERED: ALBUTEROL SO4 HFA INHALER IH PRN (12:27)
[2023-09-28] MEDS: EMTRICITAB/RILPIVIRI/TENOF ALA (ODEFSEY) TABLET PO SCH (14:53)
[2023-09-28] MEDS: THIAMINE HCL 100 MG TABLET (FP) PO SCH (22:20)
[2023-09-28] MEDS: MELATONIN 5 MG TABLETS PO SCH (22:20)
[2023-09-29] MEDS ORDERED: LORazepam 0.5 MG TABLET PO PRN
[2023-09-29] MEDS: LORazepam 0.5 MG TABLET PO SCH ×4 (05:38→22:14)
[2023-09-29] MEDS: EMTRICITAB/RILPIVIRI/TENOF ALA (ODEFSEY) TABLET PO SCH (07:27)
[2023-09-29] MEDS: NICOTINE 14 MG/24 HOURS TOPICAL PATCH TD SCH (10:20)
[2023-09-29] MEDS: PRENATAL VITAMINS W/ FOLIC ACID TABLET (FP) PO SCH (10:20)
[2023-09-29 16:49] VITALS: RESP 16
[2023-09-29] MEDS: THIAMINE HCL 100 MG TABLET (FP) PO SCH (22:14)
[2023-09-29] MEDS: MELATONIN 5 MG TABLETS PO SCH (22:14)
[2023-09-30] MEDS ORDERED: LORazepam 0.5 MG TABLET PO ONE (05:00)
[2023-09-30] MEDS: EMTRICITAB/RILPIVIRI/TENOF ALA (ODEFSEY) TABLET PO SCH (07:07)
[2023-09-30 09:09] VITALS: BP 148/85; PULSE 67; TEMP 98.2
[2023-09-30] MEDS: NICOTINE 14 MG/24 HOURS TOPICAL PATCH TD SCH (10:18)
[2023-09-30] MEDS: PRENATAL VITAMINS W/ FOLIC ACID TABLET (FP) PO SCH (10:18)
== END 2023-09-30 11:43 | disposition home or self-care (01) | DRG 897 ==
LOC: YASAS 10:39 → Y3N 13:29
PROVIDERS: ADMIT Allergy & Immunology; ATTEND Allergy & Immunology
PROC: HZ2ZZZZ Detoxification Services for Substance Abuse Treatment (ICD-10-PCS; principal; 2023-09-26)
DX: F10.230 Alcohol dependence with withdrawal, uncomplicated (principal); F11.20 Opioid dependence, uncomplicated; F13.230 Sedative, hypnotic or anxiolytic dependence with withdrawal, uncomplicated; F17.210 Nicotine dependence, cigarettes, uncomplicated; F19.21 Other psychoactive substance dependence, in remission; Z21 Asymptomatic human immunodeficiency virus [HIV] infection status; E11.9 Type 2 diabetes mellitus without complications; J43.9 Emphysema, unspecified; K21.9 Gastro-esophageal reflux disease without esophagitis; N18.9 Chronic kidney disease, unspecified; Z86.19 Personal history of other infectious and parasitic diseases; Z99.89 Dependence on other enabling machines and devices
CPT/HCPCS: 36415; 80053; 80307; 85027; 86780; 87635; 87811

== ENCOUNTER 2025-02-26 09:51 | Inpatient (IN) | payer OTHER ==
[2025-02-26 10:15] VITALS: BMI 23.9
[2025-02-26] MEDS ORDERED: NICOTINE POLACRILEX 4 MG GUM BUC PRN (10:15)
[2025-02-26] MEDS ORDERED: MAGNESIUM HYDROX 2400MG/30ML ORAL SUSPENSION 30 ML CUP PO PRN (10:15)
[2025-02-26] MEDS ORDERED: BISMUTH SUBSALICYLATE 524 MG/30 ML PO PRN (10:15)
[2025-02-26] MEDS ORDERED: guaiFENesin 600 MG TABLET.ER (FP) PO PRN (10:15)
[2025-02-26] MEDS ORDERED: METHOCARBAMOL 500 MG TABLET PO PRN (10:15)
[2025-02-26] MEDS ORDERED: ONDANSETRON *ODT* 4 MG TABLET SL PRN (10:15)
[2025-02-26] MEDS ORDERED: MAG HYDROX/AL HYDROX/SIMETH 30 ML UNIT-DOSE CUP PO PRN (10:15)
[2025-02-26] MEDS ORDERED: BENZONATATE 200 MG CAPSULE PO PRN (10:15)
[2025-02-26] MEDS ORDERED: hydrOXYzine PAMOATE 25 MG CAPSULE (FP) PO PRN (10:15)
[2025-02-26] MEDS ORDERED: DICYCLOMINE HCL 10 MG CAPSULE PO PRN (10:15)
[2025-02-26] MEDS ORDERED: POLYETHYLENE GLYCOL (HEALTHYLAX) 3350 17 GM PACKET PO PRN (10:15)
[2025-02-26] MEDS ORDERED: IBUPROFEN 600 MG TABLET (FP) PO PRN (10:15)
[2025-02-26] MEDS ORDERED: LOPERAMIDE HCL 2 MG CAPSULE PO PRN (10:15)
[2025-02-26] MEDS ORDERED: IBUPROFEN 400 MG TABLET (FP) PO PRN (10:15)
[2025-02-26] MEDS ORDERED: NALOXONE (NARCAN) HCL 4 MG/0.1 ML SPRAY NS PRN (10:15)
[2025-02-26] MEDS ORDERED: BENZOCAINE/MENTHOL (CHLORASEPTIC ) LOZENGE MM PRN (10:15)
[2025-02-26] MEDS ORDERED: diazePAM 5 MG TABLET PO PRN ×2 (10:15→13:41)
[2025-02-26] MEDS ORDERED: PRENATAL VITAMINS W/ FOLIC ACID TABLET (FP) PO ONE (12:08)
[2025-02-26] MEDS ORDERED: diazePAM 5 MG TABLET ONE (12:08)
[2025-02-26] MEDS: PRENATAL VITAMINS W/ FOLIC ACID TABLET (FP) PO SCH (12:20)
[2025-02-26] MEDS: diazePAM 5 MG TABLET PO SCH (12:20)
[2025-02-26] MEDS: ALBUTEROL SO4 HFA INHALER IH SCH (12:48)
[2025-02-26] MEDS: THIAMINE 100 MG TABLET PO SCH (22:08)
[2025-02-26] MEDS: MELATONIN 5 MG TABLETS PO SCH (22:08)
[2025-02-27] MEDS: EMTRICITAB/RILPIVIRI/TENOF ALA (ODEFSEY) TABLET PO SCH (09:00)
[2025-02-27] MEDS ORDERED: methaDONE HCL 40 MG DISPERSABLE TABLET PO SCH (10:00)
[2025-02-27 11:34] LABS: HEMATOCRIT 40.6 % (40.1-51.0); HEMOGLOBIN 12.7 g/dL (13.7-17.5); MCHC 31.3 g/dl (32.3-36.5); MEAN PLT VOLUME 13.6 fl (9.4-12.4); PLATELET COUNT 91 x10^3/uL (163-337); RDW 14.8 % (12.2-16.4)
[2025-02-27 11:37] LABS: ALBUMIN 3.6 g/dl (3.4-5.0); BLOOD UREA NITROGEN 26.1 mg/dL (7-18)
[2025-02-27 11:38] LABS: CALCIUM 8.7 mg/dL (8.5-10.1)
[2025-02-27 11:40] LABS: CREATININE 1.5 mg/dL (0.55-1.3)
[2025-02-27 11:42] LABS: BILIRUBIN,TOTAL 0.7 mg/dL (0.2-1); TOT PROT 7.4 g/dl (6.4-8.2)
[2025-02-27] MEDS: ACETAMINOPHEN 325 MG TABLET (FP) PO PRN (17:06)
[2025-02-28] MEDS: diazePAM 5 MG TABLET PO SCH (06:09)
[2025-03-01] MEDS: diazePAM 5 MG TABLET PO SCH (05:48)
[2025-03-02] MEDS: diazePAM 5 MG TABLET PO ONE (05:47)
[2025-03-02 11:53] VITALS: BP 137/62; PULSE 58; RESP 15; TEMP 97.3
== END 2025-03-02 10:34 | disposition home or self-care (01) | DRG 897 ==
LOC: YASAS 09:51 → Y6N 12:11
PROVIDERS: ADMIT Allergy & Immunology; ATTEND Allergy & Immunology
PROC: HZ2ZZZZ Detoxification Services for Substance Abuse Treatment (ICD-10-PCS; principal; 2025-02-26)
DX: F13.230 Sedative, hypnotic or anxiolytic dependence with withdrawal, uncomplicated (principal); F11.20 Opioid dependence, uncomplicated; F19.282 Other psychoactive substance dependence with psychoactive substance-induced sleep disorder; F19.280 Other psychoactive substance dependence with psychoactive substance-induced anxiety disorder; F17.210 Nicotine dependence, cigarettes, uncomplicated; Z21 Asymptomatic human immunodeficiency virus [HIV] infection status; E78.5 Hyperlipidemia, unspecified; J43.9 Emphysema, unspecified; N28.9 Disorder of kidney and ureter, unspecified; R73.03 Prediabetes; Z86.19 Personal history of other infectious and parasitic diseases; Z99.89 Dependence on other enabling machines and devices; Z79.899 Other long term (current) drug therapy
CPT/HCPCS: 36415; 80053; 80305; 80307; 85027; 86780; 93005; 93010